=== PATIENT | male | born 1990 | race Caucasian/White ===

== ENCOUNTER 2017-01-19 08:41 | Emergency (ER) | payer OTHER ==
[2017-01-19] MEDS ORDERED: Ondansetron ODT TAB* 4 MG PO ONE (09:01)
[2017-01-19] MEDS ORDERED: Ketorolac INJ* 60 MG/2 ML VIAL IM ONE (09:01)
--- NOTE | 2017-01-19 09:11 | ED ---
Influenza-Like Illness - HPI Summary HPI Summary: Patient presents with cough, congestion, vomiting, myalgia, and subjective fever since yesterday. His son was diagnosed with flu and he feels he has it as well. He has been unable to keep food down but has been able to consume liquids. He denies neck stiffness, abdominal pain, TRACY, CP or SOB. - History of Current Complaint Chief Complaint: EDFluSymptoms Time Seen by Provider: 01/19/17 08:49 Hx Obtained From: Patient Onset/Duration: Gradual Onset Severity: Moderate Associated Signs & Symptoms: Myalgia, Cough, Sore Throat, Nasal Congestion, Vomiting Related Hx: Possible Flu/Infectious Exposure - Allergy/Home Medications Allergies/Adverse Reactions: Allergies Allergy/AdvReac Type Severity Reaction Status Date / Time No Known Allergies Allergy Verified 01/19/17 08:43 PMH/Surg Hx/FS Hx/Imm Hx Endocrine/Hematology History: Denies: Hx Diabetes, Hx Thyroid Disease Cardiovascular History: Denies: Hx Hypertension Respiratory History: Reports: Hx Asthma - as a child, but no tx now Denies: Hx Chronic Obstructive Pulmonary Disease (COPD) GI History: Denies: Hx Ulcer Psychiatric History: Reports: Hx Anxiety, Hx Depression, Hx Inpatient Treatment - history of overdose, Hx Substance Abuse - IV heroin Infectious Disease History: Yes Infectious Disease History: Reports: Hx of Known/Suspected MRSA Denies: Hx Hepatitis, Hx Human Immunodeficiency Virus (HIV), History Other Infectious Disease, Traveled Outside the [place] in Last 30 Days - Family History Known Family History: Positive: Cardiac Disease, Diabetes - Social History Occupation: Unemployed Lives: With Family Alcohol Use: Rare Alcohol Amount: once per year Substance Use Type: Reports: Heroin Substance Use Comment - Amount & Last Used: last use 01/2016 Hx Tobacco Use: Yes Smoking Status (MU): Heavy Every Day Tobacco Smoker Amount Used/How Often: 1 PPD Cessation Counseling: Patient Advised to Stop Review of Systems Positive: Chills, Fatigue. Negative: Fever Positive: Sore Throat Negative: Chest Pain Positive: Cough. Negative: Shortness Of Breath Positive: Vomiting, Nausea. Negative: Abdominal Pain, Diarrhea Positive: Myalgia. Negative: Edema Negative: Rash Positive: Anxious All Other Systems Reviewed And Are Negative: Yes Physical Exam Triage Information Reviewed: Yes Vital Signs On Initial Exam: Initial Vitals Temp Pulse Resp BP Pulse Ox 98.4 F 99 24 136/80 96 01/19/17 08:43 01/19/17 08:43 01/19/17 08:43 01/19/17 08:43 01/19/17 08:43 Vital Signs Reviewed: Yes Appearance: Positive: Well-Appearing, No Pain Distress, Well-Nourished Skin: Positive: Warm, Skin Color Reflects Adequate Perfusion, Dry, Soft Head/Face: Positive: Normal Head/Face Inspection Eyes: Positive: EOMI, ASIM, Conjunctiva Clear ENT: Positive: Hearing grossly normal, Pharyngeal erythema, TMs normal Neck: Positive: Supple, Nontender, No Lymphadenopathy Respiratory/Lung Sounds: Positive: Clear to Auscultation, Breath Sounds Present Cardiovascular: Positive: RRR Abdomen Description: Positive: Nontender, Soft Bowel Sounds: Positive: Present Musculoskeletal: Positive: Strength/ROM Intact. Negative: Edema Left, Edema Right Neurological: Positive: Sensory/Motor Intact, Alert, Oriented to Person Place, Time, NV Bundle Intact Distally, Normal Gait Psychiatric: Positive: Affect/Mood Appropriate AVPU Assessment: Alert Diagnostics - Vital Signs Vital Signs Temp Pulse Resp BP Pulse Ox 01/19/17 08:43 98.4 F 99 24 136/80 96 - Laboratory Lab Results: Positive influenza Lab Statement: Any lab studies that have been ordered have been reviewed, and results considered in the medical decision making process. Flu Symptom Course/Dx - Diagnoses Differential Diagnosis/HQI/PQRI: Positive: Bronchitis, Influenza, Pneumonia, Upper Respiratory Infection Provider Diagnoses: Influenza Discharge - Discharge Plan Condition: Stable Disposition: HOME Prescriptions: Ibuprofen TAB* [Motrin TAB* 800 MG] 800 mg PO TID PRN #30 tab PRN Reason: Pain Oseltamivir CAP* [Tamiflu CAP*] 75 mg PO BID #9 cap Prochlorperazine TAB* [Compazine Tab*] 10 mg PO Q8H PRN #15 tab PRN Reason: Nausea Patient Education Materials: Influenza (ED), Acute Nausea and Vomiting (ED) Referrals: [facility] [place] [facility]ICIAN REFERRAL [Outside] Additional Instructions: Please use the medication provided to decrease your symptoms. Drink extra fluids. Call the number provided to establish care with a primary care provider for follow-up care. Return to the emergency department if symptoms worsen.
[2017-01-19] MEDS ORDERED: Oseltamivir CAP* 75 MG PO ONE (10:19)
[2017-01-19] MEDS ORDERED: diPHENhydraMINE PO* 50 MG PO ONE (10:33)
[2017-01-19 10:55] VITALS: BP 115/76
== END 2017-01-19 10:42 | disposition home or self-care (01) ==
LOC: ED 08:41
DX: J11.1 Influenza due to unidentified influenza virus with other respiratory manifestations (principal); J02.9 Acute pharyngitis, unspecified; R09.81 Nasal congestion; R05 Cough; R11.10 Vomiting, unspecified; R11.2 Nausea with vomiting, unspecified; R53.83 Other fatigue; F17.210 Nicotine dependence, cigarettes, uncomplicated
CPT/HCPCS: 87502; 87651; 96372; 99283; A9270-GY; J1885

== ENCOUNTER 2017-01-20 16:45 | Emergency (ER) | payer OTHER ==
[2017-01-20] MEDS ORDERED: Ondansetron INJ* 2 MG/ML VIAL IV ONE (18:02)
[2017-01-20] MEDS ORDERED: NS 0.9% 1000 ML* 1,000 ML IV ONE (18:02)
[2017-01-20] MEDS ORDERED: LORazepam INJ* 2 MG/ML 1 ML VIAL IV ONE (18:35)
[2017-01-20 18:36] LABS: Hematocrit 55 % (42-52); Hemoglobin 18.4 g/dl (14.0-18.0); Mean Corpuscular HGB Conc 34 g/dl (31-36); Mean Corpuscular Hemoglobin 30 pg (27-31); Mean Corpuscular Volume 89 fL (80-94); Mean Platelet Volume 11 um3 (7.4-10.4); Red Blood Count 6.15 10^6/ul (4.0-5.4); Red Cell Distribution Width 13 % (10.5-15); White Blood Count 11.5 10^3/ul (3.5-10.8)
[2017-01-20 18:40] LABS: Add Diff/Slide Review? Slide Review Added; Comments Flag Yes
[2017-01-20 18:51] LABS: Albumin 4.8 g/dL (3.2-5.2); BUN/Creatinine Ratio 18.8 (8-20); C Reactive Protein 35.97 mg/L (< 5.00); Calcium 9.8 mg/dL (8.6-10.3); EGFR Non-African American 88.6 (>60); Globulin 3.2 g/dL (2-4); Potassium 3.4 mmol/L (3.5-5.0); Total Bilirubin 1.1 mg/dL (0.2-1.0)
[2017-01-20] MEDS ORDERED: Ketorolac INJ* 30 MG/ML 1 ML VIAL IV PUSH ONE (20:30)
[2017-01-20] MEDS ORDERED: Haloperidol INJ IV/IM* 5 MG/ML AMP IV SLOW PU ONE (20:36)
[2017-01-20] MEDS ORDERED: Dexamethasone IV* 4 MG/ML 1 ML (4 MG) IV SLOW PU ONE (20:37)
[2017-01-20 21:48] LABS: Hematocrit 49 % (42-52); Hemoglobin 16.7 g/dl (14.0-18.0); Mean Corpuscular HGB Conc 34 g/dl (31-36); Mean Corpuscular Hemoglobin 30 pg (27-31); Mean Corpuscular Volume 89 fL (80-94); Mean Platelet Volume 11 um3 (7.4-10.4); Red Blood Count 5.57 10^6/ul (4.0-5.4); Red Cell Distribution Width 13 % (10.5-15); White Blood Count 12.2 10^3/ul (3.5-10.8)
[2017-01-20 23:55] VITALS: BP 116/68
--- NOTE | 2017-01-21 14:00 | ED ---
Sanjiv Escalante Adam, scribed for Rachid Whitaker MD on 01/20/17 at 1730 . Influenza-Like Illness - HPI Summary HPI Summary: Pt is a 26 year old male presenting with persistence of flu symptoms, particularly vomiting. He was seen at [facility] yesterday and was diagnosed with positive Influenza B. Since then he states that he has been taking the medicine he was given but has continued vomiting. He c/o a FB sensation in his throat which has been activating his gag reflex. He also states that he urinated 1x today and it appeared red. - History of Current Complaint Chief Complaint: EDFluSymptoms Time Seen by Provider: 01/20/17 17:23 Hx Obtained From: Patient Onset/Duration: Gradual Onset, Lasting Days, Still Present Severity: Moderate Associated Signs & Symptoms: Fever, Vomiting - Allergy/Home Medications Allergies/Adverse Reactions: Allergies Allergy/AdvReac Type Severity Reaction Status Date / Time No Known Allergies Allergy Verified 01/19/17 08:43 PMH/Surg Hx/FS Hx/Imm Hx Endocrine/Hematology History: Denies: Hx Diabetes, Hx Thyroid Disease Cardiovascular History: Denies: Hx Hypertension Respiratory History: Reports: Hx Asthma - as a child, but no tx now Denies: Hx Chronic Obstructive Pulmonary Disease (COPD) GI History: Denies: Hx Ulcer Psychiatric History: Reports: Hx Anxiety, Hx Depression, Hx Inpatient Treatment - history of overdose, Hx Substance Abuse - IV heroin Infectious Disease History: Reports: Hx of Known/Suspected MRSA Denies: Hx Hepatitis, Hx Human Immunodeficiency Virus (HIV), History Other Infectious Disease, Traveled Outside the [place] in Last 30 Days - Family History Known Family History: Positive: Cardiac Disease, Diabetes - Social History Occupation: Unemployed Lives: With Family - Father Alcohol Use: Rare Alcohol Amount: once per year Hx Substance Use: Yes Substance Use Type: Reports: Heroin Substance Use Comment - Amount & Last Used: last use 01/2016 Hx Tobacco Use: Yes Smoking Status (MU): Heavy Every Day Tobacco Smoker Amount Used/How Often: 1 PPD Review of Systems Positive: Fever Positive: Vomiting, Nausea Positive: hematuria - Possibly All Other Systems Reviewed And Are Negative: Yes Physical Exam Triage Information Reviewed: Yes Vital Signs On Initial Exam: Initial Vitals Temp Pulse Resp BP Pulse Ox 100.3 F 85 20 138/78 98 01/20/17 16:53 01/20/17 16:53 01/20/17 16:53 01/20/17 16:53 01/20/17 16:53 Vital Signs Reviewed: Yes Appearance: Positive: Well-Appearing, No Pain Distress Skin: Positive: Warm, Skin Color Reflects Adequate Perfusion, Dry Head/Face: Positive: Normal Head/Face Inspection Eyes: Positive: Normal ENT: Positive: Normal ENT inspection, Other - mild erythema and swelling of his uvula Neck: Positive: Supple, Nontender Respiratory/Lung Sounds: Positive: Clear to Auscultation, Breath Sounds Present Cardiovascular: Positive: RRR Abdomen Description: Positive: Nontender, Soft Bowel Sounds: Positive: Present Musculoskeletal: Positive: Normal Neurological: Positive: Normal Psychiatric: Positive: Affect/Mood Appropriate - Katt Coma Scale Coma Scale Total: 15 Diagnostics - Vital Signs Vital Signs Temp Pulse Resp BP Pulse Ox 01/20/17 16:53 100.3 F 85 20 138/78 98 - Laboratory Result Diagrams: 01/20/17 21:40 01/20/17 18:15 Lab Statement: Any lab studies that have been ordered have been reviewed, and results considered in the medical decision making process. Flu Symptom Course/Dx - Course Course Of Treatment: Mr. Pro presented to the ED C/O severe N/V and sore throat. He was here yesterday and Dx'd with Influenza B. While here, he made repeated attempts to gag himself and retched a lot. He had no labs yesterday and I will check labs, rehydrate him and treat him symptomatically. He was given ativan which seems to have stopped the retching. - Diagnoses Provider Diagnoses: Influenza, Uvulitis - Physician Notifications Discussed Care Of Patient With: Dr. Bianchi at change of shift Discharge - Discharge Plan Condition: Stable Disposition: HOME Prescriptions: Metoclopramide TAB* [Reglan TAB*] 10 mg PO Q8H #9 tab Ondansetron ODT TAB* [Zofran 4 MG Odt TAB*] 4 mg PO Q8H PRN #9 tab.odt PRN Reason: Nausea/Vomiting Patient Education Materials: Influenza (ED), Acute Nausea and Vomiting (ED), Uvulitis (ED) Forms: *Work Release Referrals: [facility]ERR[facility] [Outside] Additional Instructions: Follow up with your Primary Care Physician this week. Use the [facility] Physician Referral Center if needed. The documentation as recorded by the Sanjiv franklin,Ciro accurately reflects the service I personally performed and the decisions made by me, Rachid Whitaker MD.
--- NOTE | 2017-01-22 21:30 | ED ---
Jonathan Escalante Billy, scribed for Nico Bianchi MD on 01/20/17 at 2036 . Progress - Progress Note Progress Note: Patient signed out by Dr. Whitaker at shift change. Re-Evaluation - Re-Evaluation First Eval Re-Evaluation Time: 20:37 Second Eval Re-Evaluation Time: 22:58 Change: Improved Course/Dx - Course Course Of Treatment: Patient signed out by Dr. Whitaker at shift change. He states that he has been vomiting blood, although there is no evidence of him doing so. On exam in the ED, patient has an enlarged uvula. He was observed in the ED and given Toradol, Haldol, and Decadron, and with re-evaluation, his symptoms improved. He will be discharged to follow up with PCP. - Diagnoses Provider Diagnoses: Influenza, Uvulitis Discharge - Discharge Plan Condition: Stable Disposition: HOME Patient Education Materials: Influenza (ED), Acute Nausea and Vomiting (ED), Uvulitis (ED) Referrals: [facility] [place] [Outside] Additional Instructions: Follow up with your Primary Care Physician this week. Use the [facility]erral [facility] if needed. The documentation as recorded by the Jonathan franklin Billy accurately reflects the service I personally performed and the decisions made by Tash castelan Jerry, MD.
== END 2017-01-20 23:55 | disposition home or self-care (01) ==
LOC: ED 16:45
DX: J11.1 Influenza due to unidentified influenza virus with other respiratory manifestations (principal); K12.2 Cellulitis and abscess of mouth; R11.10 Vomiting, unspecified; R50.9 Fever, unspecified
CPT/HCPCS: 36415; 80053; 85025; 85027; 86140; 96374; 96375; 99283; J1100; J1630; J1885; J2060; J2405

== ENCOUNTER 2017-01-23 00:03 | Emergency (ER) | payer OTHER ==
[2017-01-23 00:09] VITALS: BP 157/78
== END 2017-01-23 00:14 | disposition left against medical advice (07) ==
LOC: ED 00:03
DX: K92.0 Hematemesis (principal); Z53.21 Procedure and treatment not carried out due to patient leaving prior to being seen by health care provider

== ENCOUNTER → 2017-04-13 15:25 | Emergency (ER) | payer SELFPAY ==
[2017-04-13 15:37] VITALS: BP 128/78
== END | disposition left against medical advice (07) ==
LOC: ED 15:25
DX: H92.09 Otalgia, unspecified ear (principal)

== ENCOUNTER 2017-04-13 16:46 | Emergency (ER) | payer SELFPAY ==
[2017-04-13 17:05] VITALS: BP 138/91
[2017-04-13] MEDS ORDERED: HYDROmorphone* 2 MG/ML 1 ML SYR IV SLOW PU ONE (17:21)
[2017-04-13] MEDS ORDERED: Vancomycin(*) 1,000 MG in NS 0.9% 250 ML* 250 ML IVPB SCH (18:00)
[2017-04-13 18:11] LABS: Hematocrit 41 % (42-52); Hemoglobin 13.9 g/dl (14.0-18.0); Mean Corpuscular HGB Conc 34 g/dl (31-36); Mean Corpuscular Hemoglobin 30 pg (27-31); Mean Corpuscular Volume 90 fL (80-94); Mean Platelet Volume 10 um3 (7.4-10.4); Red Blood Count 4.57 10^6/ul (4.0-5.4); Red Cell Distribution Width 13 % (10.5-15); White Blood Count 11.4 10^3/ul (3.5-10.8)
[2017-04-13] MEDS ORDERED: Vancomycin per Pharmacy* NOTE FOLLOW UP PRN (18:25)
[2017-04-13 18:28] LABS: Albumin 4.5 g/dL (3.2-5.2); C Reactive Protein 30.36 mg/L (< 5.00); Calcium 9.8 mg/dL (8.6-10.3); EGFR African American 159.5 (>60); Globulin 2.8 g/dL (2-4); Potassium 3.3 mmol/L (3.5-5.0); Total Bilirubin 2.2 mg/dL (0.2-1.0); Total Protein 7.3 g/dL (6.4-8.9)
[2017-04-13] MEDS ORDERED: Iohexol 300* (CONTRAST) 10 ML SDV IV ONE (18:34)
--- NOTE | 2017-04-13 18:49 | RAD ---
INDICATION: Cough and fever COMPARISON: July 30, 2016 TECHNIQUE: An AP portable view obtained at 1825 hours is submitted. FINDINGS: Bones/Soft Tissues: There are no acute bony findings. Cardiomediastinal: The cardiomediastinal silhouette is normal. Lungs: There are no infiltrates. Pleura: There are no pleural effusions. Other: None IMPRESSION: NO ACTIVE DISEASE.
[2017-04-13] MEDS ORDERED: VANCOMYCIN 1500 MG X 1 DOSE, THEN PER PHARMACY PROTOCOL IVPB ONE ×2 (19:00)
--- NOTE | 2017-04-13 19:01 | RAD ---
INDICATION: Left ear skin lesion. Purulent drainage. COMPARISON: None TECHNIQUE: Axial source images were acquired from the vertex of the mandible through the orbits. Coronal and sagittal reconstructed images were acquired. 75 mL of Omnipaque 300 was utilized. FINDINGS: Bones: There is no acute facial bone fracture. Orbits: The globes and intraconal structures appear intact. The optic nerves are symmetric. Extraocular muscles appear normal. There is no intraconal inflammatory change or retrobulbar mass.. Paranasal sinuses: There is bilateral ethmoid sinusitis. There is circumferential mucosal thickening in the left maxillary antrum. There is minor left ethmoid and sphenoid sinus mucoperiosteal thickening. Brain: There are no acute abnormalities of the visualized brain parenchyma. Soft tissues: There is a fascial/subcutaneous edema about the soft tissues of the external ear centered at the level of the tragus. The edema results in narrowing of the external auditory canal. There is preauricular soft tissue swelling/edema. There is no localized fluid collection or foreign body. Other: The mastoid air cells are well aerated. There is no evidence of mastoiditis Nodes There is submental lymph node enlargement which may be reactive. The largest lymph node measures 1.2 cm in transverse dimension. There are also small but asymmetric left-sided preauricular lymph nodes. IMPRESSION: 1. SOFT TISSUE SWELLING ABOUT THE TRAGUS/EXTERNAL AUDITORY CANAL AND PREAURICULAR SPACE. 2. NO LOCALIZED FLUID COLLECTION TO SUGGEST ORGANIZED ABSCESS. 3. FINDINGS COMPATIBLE WITH CHRONIC SINUSITIS. 4. NO OSSEOUS CHANGE OR EVIDENCE OF MASTOIDITIS. 5. ENLARGED SUBMENTAL AND ASYMMETRIC PREAURICULAR LYMPH NODES ARE LIKELY REACTIVE.
[2017-04-13 19:38] LABS: Erythrocyte Sed Rate 13 mm/Hr (0-14)
--- NOTE | 2017-04-20 23:26 | ED ---
Sylvia Escalante Auryana, scribed for Nico Bianchi MD on 04/13/17 at 1711 . Throat Pain/Nasal Congestion - HPI Summary HPI Summary: 27 year old male presents with left side ear pain starting last night. He reports that he opened the pimple with his knife - states "uses his knife for everything". On a scale of 1-10, patient reports that his pain is a "20/10". Patient reports that the pain radiates to the areas around it, to the jaw - reports hard to open without physical help. He denies any fevers. PMHx is significant for drug abuse - Suboxone - reports last dose yesterday morning. - History of Current Complaint Chief Complaint: EDRashSkinAbscess Time Seen by Provider: 04/13/17 16:58 Hx Obtained From: Patient Onset/Duration: Sudden Onset, Lasting Days - last night, Still Present Severity: Severe - PER PATIENT "20/10" Cough: None - Allergies/Home Medications Allergies/Adverse Reactions: Allergies Allergy/AdvReac Type Severity Reaction Status Date / Time No Known Allergies Allergy Verified 04/13/17 15:38 PMH/Surg Hx/FS Hx/Imm Hx Endocrine/Hematology History: Denies: Hx Diabetes, Hx Thyroid Disease Cardiovascular History: Denies: Hx Hypertension Respiratory History: Reports: Hx Asthma - as a child, but no tx now Denies: Hx Chronic Obstructive Pulmonary Disease (COPD) GI History: Denies: Hx Ulcer Psychiatric History: Reports: Hx Anxiety, Hx Depression, Hx Inpatient Treatment - history of overdose, Hx Substance Abuse - IV heroin Infectious Disease History: Reports: Hx of Known/Suspected MRSA Denies: Hx Hepatitis, Hx Human Immunodeficiency Virus (HIV), History Other Infectious Disease, Traveled Outside the [place] in Last 30 Days - Family History Known Family History: Positive: Cardiac Disease, Diabetes - Social History Lives: With Family Alcohol Use: Rare Alcohol Amount: once per year Hx Substance Use: Yes Substance Use Type: Reports: Heroin, Other - states suboxone - "off the streets " Substance Use Comment - Amount & Last Used: last use 01/2016 Hx Tobacco Use: Yes Smoking Status (MU): Heavy Every Day Tobacco Smoker Amount Used/How Often: 1 PPD Review of Systems Constitutional: Negative Negative: Fever Eyes: Negative Positive: Ear Ache Cardiovascular: Negative Negative: Chest Pain Respiratory: Negative Negative: Shortness Of Breath, Cough Gastrointestinal: Negative Negative: Abdominal Pain, Vomiting, Nausea Genitourinary: Negative Negative: dysuria, hematuria Musculoskeletal: Negative Negative: Myalgia, Edema Skin: Negative Negative: Rash Neurological: Negative, Other - no dizziness Psychological: Normal All Other Systems Reviewed And Are Negative: Yes Physical Exam - Summary Physical Exam Summary: Constitutional: Well-developed, Well-nourished, Alert. (-) Distressed Skin: Warm, Dry HENT: Normocephalic; Atraumatic Eyes: tragus is indurated and erythematus - mild trismus with yellow pus draining out of the external ear and into the ear canal Eyes: Conjunctiva normal Neck: Musculoskeletal ROM normal neck. (-) JVD, (-) Stridor, (-) Tracheal deviation Cardio: Rhythm regular, rate normal, Heart sounds normal; Intact distal pulses; The pedal pulses are 2+ and symmetric. Radial pulses are 2+ and symmetric. (-) Murmur Pulmonary/Chest wall: Effort normal. (-) Respiratory distress, (-) Wheezes, (-) Rales Abd: Soft, (-) Tenderness, (-) Distension, (-) Guarding, (-) Rebound Musculoskeletal: (-) Edema Lymph: (-) Cervical adenopathy Neuro: Alert, Oriented x3 Psych: Mood and affect Normal Triage Information Reviewed: Yes Vital Signs Reviewed: Yes Diagnostics - Laboratory Result Diagrams: 04/13/17 17:55 04/13/17 17:55 Lab Statement: Any lab studies that have been ordered have been reviewed, and results considered in the medical decision making process. - Radiology Chest XR Xray Interpretation: No Acute Changes - IMPRESSION: NO ACTIVE DISEASE. Radiology Interpretation Completed By: Radiologist - IMPRESSION: NO ACTIVE DISEASE. EENT Course/Dx - Course Course Of Treatment: 27 year old male presents with left side ear pain starting last night. He reports that he opened the pimple with his knife - states "uses his knife for everything". On a scale of 1-10, patient reports that his pain is a "20/10". Patient reports that the pain radiates to the areas around it, to the jaw - reports hard to open without physical help. He denies any fevers. PMHx is significant for drug abuse - Suboxone - reports last dose yesterday morning. Dr. Avalos consulted - oral ABX will be given Cipro 750mg BID, and reocmmended if worse tomorrow f/u at his office or be seen in the ED - OTHERWISE follow up in 3-5 days at the office. No indication fo surgery or admission. CT maxillofacial -IMPRESSION: 1. SOFT TISSUE SWELLING ABOUT THE TRAGUS/EXTERNAL AUDITORY CANAL AND PREAURICULAR SPACE. 2. NO LOCALIZED FLUID COLLECTION TO SUGGEST ORGANIZED ABSCESS. 3. FINDINGS COMPATIBLE WITH CHRONIC SINUSITIS. 4. NO OSSEOUS CHANGE OR EVIDENCE OF MASTOIDITIS. 5. ENLARGED SUBMENTAL AND ASYMMETRIC PREAURICULAR LYMPH NODES ARE LIKELY REACTIVE. Dx: IVDA , and ear abscess. PATIENT REPORTS THAT HE DOES NOT WANT TO STAY AND WAIT UNTIL ABX ARE DONE AND TRANSMITTED. PATIENT STATES THAT HE HAS OTHER COMMITMENTS. PATIENT WILL LEAVE AMA. - Diagnoses Provider Diagnoses: Intravenous drug abuse, Abscess, ear canal - Provider Notifications Discussed Care Of Patient With: Franco Avalos Time Discussed With Above Provider: 17:41 - Advised to call after imaging is finished states will likely recommend oral ABX. Discharge - Discharge Plan Condition: Stable Disposition: AGAINST MEDICAL ADVICE Prescriptions: Ciprofloxacin TAB* [Cipro 750 MG Tab*] 750 mg PO BID #28 tab oxyCODONE/Acetamin 5/325 MG* [Percocet 5/325 TAB*] 2 tab PO Q4H PRN #20 tab MDD 8 PRN Reason: Pain - Moderate To Severe Patient Education Materials: Abscess (ED), Polysubstance Abuse (ED) Referrals: Franco Avalos MD [Medical Doctor] - (please follow up in 3-5 days. IF PAIN WOR WORSENING SYMPTOMS PLEASE CALL OFFICE IMMEDIATELY FOR FOLLOW UP OR RETURN TO THE ED.) Additional Instructions: RETURN TO THE EMERGENCY DEPARTMENT FOR CHANGING OR WORSENING SYMPTOMS The documentation as recorded by the Sylvia franklin Auryana accurately reflects the service I personally performed and the decisions made by , Nico Bianchi MD.
== END 2017-04-13 19:30 | disposition left against medical advice (07) ==
LOC: ED 16:46
DX: H66.40 Suppurative otitis media, unspecified, unspecified ear (principal); F19.10 Other psychoactive substance abuse, uncomplicated; H92.02 Otalgia, left ear; F17.210 Nicotine dependence, cigarettes, uncomplicated
CPT/HCPCS: 36415; 70487; 71010; 80053; 83605; 85025; 85610; 85652; 85730; 86140; 87040; 87070; 87077; 87186; 87205; 87640; 87641; 96374; 99283; J1170; J2543; J3370; Q9967

== ENCOUNTER 2017-04-13 23:40 | Emergency (ER) | payer SELFPAY ==
[2017-04-13 23:47] VITALS: BP 140/67
--- NOTE | 2017-04-15 11:22 | PN ---
Progress Note - Progress Note Date of Service: 04/15/17 Note: wound culture grew MRSA. attempted to call patient and VM not set up. sent script Bactrim DS bid X10 days so will have send letter
--- NOTE | 2017-04-16 10:46 | PN ---
Progress Note - Progress Note Date of Service: 04/13/17 Note: Sensitivities to bactrim Cx grew MRSA Appropriately treated with bactrim Nothing further at this time. Alexandra Fonseca PA-C
--- NOTE | 2017-04-25 04:39 | ED ---
Tl Escalante SooYoung, scribed for Dustin Denny MD on 04/14/17 at 0247 . Throat Pain/Nasal Congestion - HPI Summary HPI Summary: LEVEL 5 CAVEAT: HPI LIMITED, PT LEFT AMA PRIOR TO EVALUATION. A 27 y/o M presents to ED with ear pain. Pt had been seen in ED twice previously on 04/13/2017. Pt was roused from sleep at bedside. When asked why he returned to ED, pt became agitated and left AMA. - History of Current Complaint Chief Complaint: EDEarPain Time Seen by Provider: 04/14/17 02:45 - Allergies/Home Medications Allergies/Adverse Reactions: Allergies Allergy/AdvReac Type Severity Reaction Status Date / Time No Known Allergies Allergy Verified 04/13/17 15:38 PMH/Surg Hx/FS Hx/Imm Hx Previously Healthy: No Endocrine/Hematology History: Denies: Hx Diabetes, Hx Thyroid Disease Cardiovascular History: Denies: Hx Hypertension Respiratory History: Reports: Hx Asthma - as a child, but no tx now Denies: Hx Chronic Obstructive Pulmonary Disease (COPD) GI History: Denies: Hx Ulcer Psychiatric History: Reports: Hx Anxiety, Hx Depression, Hx Inpatient Treatment - history of overdose, Hx Substance Abuse - IV heroin Infectious Disease History: No Infectious Disease History: Reports: Hx of Known/Suspected MRSA Denies: Hx Hepatitis, Hx Human Immunodeficiency Virus (HIV), History Other Infectious Disease, Traveled Outside the [place] in Last 30 Days - Family History Known Family History: Positive: Cardiac Disease, Diabetes - Social History Occupation: Unemployed Lives: Alone Alcohol Use: Occasionally Alcohol Amount: once per year Hx Substance Use: Yes Substance Use Type: Reports: Heroin Substance Use Comment - Amount & Last Used: last use 01/2016, pt states current IV suboxone use Hx Tobacco Use: Yes Smoking Status (MU): Heavy Every Day Tobacco Smoker Amount Used/How Often: 1 PPD Review of Systems - ROS Summary Review of Systems Summary: LEVEL 5 CAVEAT: ROS LIMITED DUE TO PT LEAVING AMA PRIOR TO EVALUATION. Negative: Fever Positive: Ear Ache All Other Systems Reviewed And Are Negative: No Physical Exam Vital Signs On Initial Exam: Initial Vitals Temp Pulse Resp BP Pulse Ox 99.2 F 90 22 140/67 100 04/13/17 23:41 04/13/17 23:41 04/13/17 23:41 04/13/17 23:41 04/13/17 23:41 Diagnostics - Vital Signs Vital Signs Temp Pulse Resp BP Pulse Ox 04/14/17 00:21 97.1 F 101 18 140/67 100 04/13/17 23:41 99.2 F 90 22 140/67 100 - Laboratory Lab Statement: Any lab studies that have been ordered have been reviewed, and results considered in the medical decision making process. EENT Course/Dx - Diagnoses Provider Diagnoses: Ear pain Discharge - Discharge Plan Condition: Stable Disposition: AGAINST MEDICAL ADVICE Prescriptions: Ciprofloxacin TAB* [Cipro 750 MG Tab*] 750 mg PO BID #28 tab Sulfamethox/Trimethoprim DS* [Bactrim DS 800/160 TAB*] 1 tab PO BID #20 tab Referrals: No Primary Care Phys,NOPCP [Primary Care Provider] - The documentation as recorded by the Tl franklin SooYoung accurately reflects the service I personally performed and the decisions made by me, Dustin Denny MD.
== END 2017-04-14 02:53 | disposition left against medical advice (07) ==
LOC: ED 23:40
DX: H92.09 Otalgia, unspecified ear (principal); J45.909 Unspecified asthma, uncomplicated; F41.9 Anxiety disorder, unspecified; F32.9 Major depressive disorder, single episode, unspecified; F17.210 Nicotine dependence, cigarettes, uncomplicated
CPT/HCPCS: 99282

== ENCOUNTER → 2017-09-09 01:41 | Emergency (ER) | payer OTHER ==
[~2017-09-09 01:41] MED LIST: Tetan/Diph/Pertus SYR(Tdap)* 0.5 ML SYR(BOOSTRIX) use SYR IM ONE
[2017-09-09 01:47] VITALS: BP 137/90
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
== END | disposition home or self-care (01) ==
LOC: ED 01:41
DX: S09.90XA Unspecified injury of head, initial encounter (principal); S01.411A Laceration without foreign body of right cheek and temporomandibular area, initial encounter; S02.2XXA Fracture of nasal bones, initial encounter for closed fracture; W50.0XXA Accidental hit or strike by another person, initial encounter; Y93.9 Activity, unspecified; Y92.9 Unspecified place or not applicable; Z23 Encounter for immunization; R11.0 Nausea; F41.9 Anxiety disorder, unspecified; F32.9 Major depressive disorder, single episode, unspecified; F17.210 Nicotine dependence, cigarettes, uncomplicated
CPT/HCPCS: 12011; 70450; 70486; 72125; 90471; 90715; 99282

== ENCOUNTER 2019-12-03 08:06 | Emergency (ER) | payer SELFPAY ==
[2019-12-03 08:32] LABS: Influenza A Molecular Negative (Negative); Influenza B Molecular Negative (Negative)
--- NOTE | 2019-12-03 08:42 | UC ---
Abdominal Pain Male HPI - HPI Summary HPI Summary: Patient is a 29-year-old male that presents here complaining of muscle aches, crampy abdominal pain, nausea, and vomiting. His vomiting has been very frequent. He states that he uses K /2, spice and feels that he is addicted to it. He has had no surgeries on his abdomen. He denies any fever. He denies any UTI symptoms. He denies any alcohol use. - History of Current Complaint Chief Complaint: UCRespiratory Stated Complaint: FLU SYMPTOMS Time Seen by Provider: 12/03/19 08:09 Hx Obtained From: Patient Onset/Duration: Sudden Onset, Lasting Hours Timing: Constant Severity Initially: Moderate Severity Currently: Severe Pain Intensity: 9 Pain Scale Used: 0-10 Numeric Location: Diffuse Character: Cramping Aggravating Factor(s): Nothing Alleviating Factor(s): Nothing Associated Signs And Symptoms: Positive: Diaphoresis, Nausea, Vomiting Male Torso: 1 - band like pain across abd - Allergies/Home Medications Allergies/Adverse Reactions: Allergies Allergy/AdvReac Type Severity Reaction Status Date / Time No Known Allergies Allergy Verified 12/03/19 08:25 Home Medications: Home Medications Ibuprofen TAB* [Motrin TAB* 800 MG] 800 mg PO TID PRN #30 tab 01/19/17 [Rx Confirmed 12/03/19] Buprenorphine HCl/Naloxone HCl [Suboxone 12 mg-3 mg Sl Film] 1 each SL DAILY [History Confirmed 12/03/19] Gabapentin CAP(*) [Neurontin 400 mg CAP(*)] 1,600 mg PO DAILY 12/03/19 [History Confirmed 12/03/19] PMH/Surg Hx/FS Hx/Imm Hx Previously Healthy: Yes GI/ History: Other Other GI/ History: ? hx colitis - Surgical History Surgical History: None - Family History Known Family History: Positive: Cardiac Disease, Diabetes, Non-Contributory Family History: NON CONTRIBUTORY - Social History Alcohol Use: Rare Alcohol Amount: once per year Substance Use Type: Marijuana, Synthetic Drugs Substance Use Comment - Amount & Last Used: K2, suboxone Smoking Status (MU): Heavy Every Day Tobacco Smoker Amount Used/How Often: 1 PPD Household Exposure Type: Cigarettes - Immunization History Most Recent Influenza Vaccination: 2010 Most Recent Tetanus Shot: uknown Review of Systems All Other Systems Reviewed And Are Negative: Yes Constitutional: Positive: Fatigue Skin: Positive: Negative Eyes: Positive: Negative ENT: Positive: Negative Respiratory: Positive: Negative Cardiovascular: Positive: Negative Gastrointestinal: Positive: Abdominal Pain, Vomiting, Nausea Genitourinary: Positive: Negative Motor: Positive: Negative Neurovascular: Positive: Negative Musculoskeletal: Positive: Myalgia Neurological/Mental Status: Positive: Negative Psychological: Positive: Negative Physical Exam Vital Signs: Initial Vital Signs Temp 98.2 F 12/03/19 08:15 Pulse 83 12/03/19 08:15 Resp 16 12/03/19 08:15 BP 165/89 12/03/19 08:15 Pulse Ox 100 12/03/19 08:15 Re-Evaluation - Re-Evaluation First Eval Re-Evaluation Time: 10:11 Change: Improved - decreased nausea/still with abd pain but it is decreased Second Eval Re-Evaluation Time: 11:20 Change: Worse - feels worse after getting up and going to the rest room Abd Pain Male Course/Dx - Course Course Of Treatment: discussed with Veronica at [facility] [place] via [place] - Differential Dx/Clinical Impression Provider Diagnosis: Abdominal pain, Vomiting Discharge ED - Sign-Out/Discharge Documenting (check all that apply): Patient Departure All imaging exams completed and their final reports reviewed: No Studies - Discharge Plan Condition: Stable Disposition: TRANS HIGHER LVL OF CARE FAC Referrals: No Primary Care Phys,NOPCP [Primary Care Provider] - - Billing Disposition and Condition Condition: STABLE Disposition: Trans Higher Lvl of Care Fac
[2019-12-03] MEDS ORDERED: Ondansetron INJ* 2 MG/ML VIAL IV ONE (08:46)
[2019-12-03] MEDS ORDERED: Famotidine IV* 10 MG/ML 2 ML (20 mg) IV SLOW PU ONE (08:47)
[2019-12-03] MEDS ORDERED: NS 0.9% 1000 ML** 1,000 ML BOLUS ONE ×2 (08:47→10:18)
[2019-12-03] MEDS ORDERED: Lorazepam PYXIS KEY PRN (09:30)
[2019-12-03] MEDS ORDERED: LORazepam INJ* 2 MG/ML 1 ML VIAL IV PUSH ONE (09:30)
[2019-12-03] MEDS ORDERED: Ketorolac INJ* 30 MG/ML 1 ML VIAL IV ONE (09:32)
[2019-12-03] MEDS ORDERED: Lorazepam PYXIS KEY ONE (09:35)
[2019-12-03 11:34] VITALS: BP 146/72
== END 2019-12-03 11:38 | disposition short-term general hospital (02) ==
LOC: UCEAST 08:06
DX: R11.2 Nausea with vomiting, unspecified (principal); R10.9 Unspecified abdominal pain; R53.83 Other fatigue; R61 Generalized hyperhidrosis; M79.10 Myalgia, unspecified site; F17.210 Nicotine dependence, cigarettes, uncomplicated
CPT/HCPCS: 81003; 96360; 96361; 96374; 96376; 99213; G0463; J1885; J2060; J2405

== ENCOUNTER 2019-12-03 11:58 | Emergency (ER) | payer OTHER ==
[2019-12-03] MEDS ORDERED: Dicyclomine CAP* 10 MG PO ONE (13:04)
[2019-12-03 13:58] LABS: Urine Appearance Clear; Urine Bilirubin Negative (Negative); Urine Blood Negative (Negative); Urine Color Straw; Urine Glucose 1+(50 mg/dL) (Negative); Urine Ketones Negative (Negative); Urine Nitrite Negative (Negative); Urine Protein Negative (Negative); Urine Specific Gravity 1.011 (1.010-1.030); Urine Urobilinogen Negative (Negative)
[2019-12-03 14:03] LABS: Urine Benzodiazepine Screen None Detected (None Detect); Urine Opiates Screen None Detected (None Detect)
[2019-12-03 14:33] LABS: ABS Lymphocytes 1.1 10^3/ul (1.0-4.8); ABS Monocytes 0.3 10^3/ul (0-0.8); ABS Neutrophils 14.8 10^3/ul (1.5-7.7); Hematocrit 45 % (42-52); Hemoglobin 15.3 g/dL (14.0-18.0); Lymphocyte % 6.7 %; Mean Corpuscular HGB Conc 34 g/dL (31-36); Mean Corpuscular Hemoglobin 31 pg (27-31); Mean Corpuscular Volume 92 fL (80-94); Mean Platelet Volume 8.9 fL (7.4-10.4); Platelet Count 253 10^3/uL (150-450); Red Blood Count 4.92 10^6 /uL (4.18-5.48); Red Cell Distribution Width 13 % (10-15); White Blood Count 16.3 10^3/uL (3.5-10.8)
[2019-12-03 14:53] LABS: Albumin 4.7 g/dL (3.2-5.2); Albumin/Globulin Ratio 1.7 (1-3); BUN/Creatinine Ratio 14.7 (8-20); C Reactive Protein 21.84 mg/L (<8.01); Calcium 9.1 mg/dL (8.6-10.3); EGFR African American 165.7 (>60); EGFR Non-African American 136.9 (>60); Globulin 2.7 g/dL (2-4); Total Bilirubin 0.5 mg/dL (0.2-1.0); Total Protein 7.4 g/dL (6.4-8.9)
[2019-12-03] MEDS ORDERED: Iohexol 300* (CONTRAST) 10 ML SDV IV ONE (14:58)
[2019-12-03 15:29] VITALS: BP 167/90
[2019-12-03] MEDS ORDERED: NS 0.9% 1000 ML** 1,000 ML IV ONE (15:30)
[2019-12-03] MEDS ORDERED: Ondansetron INJ* 2 MG/ML VIAL IV ONE (16:11)
[2019-12-03] MEDS ORDERED: Al Hydrox/Mg Hydrox/Simet LIQ* 30 ML UDC PO ONE (16:22)
--- NOTE | 2019-12-03 16:23 | ED ---
Abdominal Pain/Male - HPI Summary HPI Summary: Patient is a 29-year-old male with history of IV drug use currently on Suboxone presenting to the ED with abdominal pain, nausea and vomiting. He was seen in urgent care and transferred here. States he has had one episode history of colitis which was diagnosed in [facility] last year. He was given antiemetics and another medication, patient does not recall, and symptoms improved. He was not given antibiotics at the time. He denies any fevers, sweats, chills. He denies any diarrhea and denies any melena, hematochezia, hematemesis, gross hematuria or other urinary symptoms. He takes Suboxone daily and has not his medications. Symptoms began yesterday, patient states he feels dehydrated. Symptoms are intermittent. Pain is located directly over the mid abdomen and is nonradiating. - History of Current Complaint Chief Complaint: EDAbdPain Stated Complaint: ABD PAIN PER EMS Time Seen by Provider: 12/03/19 12:02 Hx Obtained From: Patient Onset/Duration: Sudden Onset Timing: Constant Severity Initially: Moderate Severity Currently: Moderate Pain Intensity: 6 Pain Scale Used: 0-10 Numeric Location: Diffuse Radiates: No Character: Cramping Aggravating Factor(s): Nothing Alleviating Factor(s): Nothing Associated Signs And Symptoms: Positive: Constipation - Risk Factors Testicular Torsion: Negative Cardiac Risk Factors: Negative - Allergies/Home Medications Allergies/Adverse Reactions: Allergies Allergy/AdvReac Type Severity Reaction Status Date / Time No Known Allergies Allergy Verified 12/03/19 08:25 Home Medications: Home Medications Ibuprofen TAB* [Motrin TAB* 800 MG] 800 mg PO TID PRN #30 tab 01/19/17 [Rx Confirmed 12/03/19] Al Hydrox/Mg Hydrox/Simet LIQ* [Maalox Plus*] 30 ml PO Q4H PRN #1 bottle [Rx] Buprenorphine HCl/Naloxone HCl [Suboxone 12 mg-3 mg Sl Film] 1 each SL DAILY [History Confirmed 12/03/19] Gabapentin CAP(*) [Neurontin 400 mg CAP(*)] 800 - 1,200 mg PO DAILY 12/03/19 [ History Confirmed 12/03/19] Ondansetron ODT TAB* [Zofran 4 MG Odt TAB*] 4 mg PO Q6H PRN #12 tab.odt MDD 4 [Rx] Simethicone [Gas-X] 125 mg PO TID #15 capsule 12/03/19 [Rx] PMH/Surg Hx/FS Hx/Imm Hx Previously Healthy: Yes Endocrine/Hematology History: Denies: Hx Diabetes, Hx Thyroid Disease Cardiovascular History: Denies: Hx Hypertension Respiratory History: Reports: Hx Asthma Denies: Hx Chronic Obstructive Pulmonary Disease (COPD) GI History: Denies: Hx Ulcer Psychiatric History: Reports: Hx Anxiety, Hx Depression, Hx Inpatient Treatment - history of overdose, Hx Substance Abuse - IV heroin - Immunization History Hx Pertussis Vaccination: No Immunizations Up to Date: Yes Infectious Disease History: No Infectious Disease History: Reports: Hx of Known/Suspected MRSA Denies: Hx Hepatitis, Hx Human Immunodeficiency Virus (HIV), History Other Infectious Disease, Traveled Outside the [place] in Last 30 Days - Family History Known Family History: Positive: Cardiac Disease, Diabetes, Non-Contributory Family History: NON CONTRIBUTORY - Social History Occupation: Unemployed Lives: Alone Alcohol Use: Rare Alcohol Amount: once per year Hx Substance Use: Yes Substance Use Type: Reports: Marijuana, Synthetic Drugs Substance Use Comment - Amount & Last Used: K2 spice Hx Tobacco Use: Yes Smoking Status (MU): Heavy Every Day Tobacco Smoker Amount Used/How Often: 1 PPD Review of Systems Negative: Fever, Chills, Fatigue, Skin Diaphoresis Negative: Palpitations, Chest Pain Negative: Shortness Of Breath, Cough Positive: Abdominal Pain, Vomiting, Nausea. Negative: Diarrhea Genitourinary: Negative Positive: no symptoms reported, see HPI Negative: Arthralgia, Myalgia Skin: Negative All Other Systems Reviewed And Are Negative: Yes Physical Exam Triage Information Reviewed: Yes Vital Signs On Initial Exam: Initial Vitals Pulse Pulse Ox 80 97 12/03/19 12:04 12/03/19 12:04 Completion Of Physical Exam Limited Due To: Altered Mental Status - pt slow to respond Appearance: Positive: Well-Nourished, Ill-Appearing, Pain Distress Skin: Positive: Warm, Skin Color Reflects Adequate Perfusion Head/Face: Positive: Normal Head/Face Inspection Eyes: Positive: EOMI, ASIM, Conjunctiva Clear Neck: Positive: Supple, No Lymphadenopathy Respiratory/Lung Sounds: Positive: Clear to Auscultation, Breath Sounds Present Cardiovascular: Positive: RRR, Pulses are Symmetrical in both Upper and Lower Extremities Abdomen Description: Positive: Other: - tenderness throughout the abd Musculoskeletal: Positive: Normal, Strength/ROM Intact Neurological: Positive: Speech Normal AVPU Assessment: Verbal (Reponds To) - Katt Coma Scale Best Eye Response: 3 - To Speech Best Motor Response: 6 - Obeys Commands Best Verbal Response: 5 - Oriented Coma Scale Total: 14 Procedures - Sedation Patient Received Moderate/Deep Sedation with Procedure: No Diagnostics - Vital Signs Vital Signs Temp Pulse Resp BP Pulse Ox 12/03/19 15:25 72 167/90 96 12/03/19 15:24 72 96 12/03/19 14:35 145/88 12/03/19 14:06 161/89 12/03/19 13:36 134/73 12/03/19 13:17 67 100 12/03/19 13:05 148/94 12/03/19 12:35 146/82 12/03/19 12:05 98.3 F 61 20 168/103 99 12/03/19 12:04 80 97 - Laboratory Lab Results: Lab Results 12/03/19 12/03/19 12/03/19 Range/Units 13:33 13:33 14:15 WBC 16.3 H (3.5-10.8) 10^3/uL RBC 4.92 (4.18-5.48) 10^6 /uL Hgb 15.3 (14.0-18.0) g/dL Hct 45 (42-52) % MCV 92 (80-94) fL MCH 31 (27-31) pg MCHC 34 (31-36) g/dL RDW 13 (10-15) % Plt Count 253 (150-450) 10^3/uL MPV 8.9 (7.4-10.4) fL Neut % (Auto) 90.9 % Lymph % (Auto) 6.7 % [place] % (Auto) 2.1 % Eos % (Auto) 0.0 % Baso % (Auto) 0.3 % Absolute Neuts (auto) 14.8 H (1.5-7.7) 10^3/ul Absolute Lymphs (auto) 1.1 (1.0-4.8) 10^3/ul Absolute Monos (auto) 0.3 (0-0.8) 10^3/ul Absolute Eos (auto) 0.0 (0-0.6) 10^3/ul Absolute Basos (auto) 0.0 (0-0.2) 10^3/ul Absolute Nucleated RBC 0.0 10^3/ul Nucleated RBC % 0.0 Sodium (135-145) mmol/L Potassium (3.5-5.0) mmol/L Chloride (101-111) mmol/L Carbon Dioxide (22-32) mmol/L Anion Gap (2-11) mmol/L BUN (6-24) mg/dL Creatinine (0.67-1.17) mg/dL Est GFR ( Amer) (>60) Est GFR (Non-Af Amer) (>60) BUN/Creatinine Ratio (8-20) Glucose (70-100) mg/dL Lactic Acid (0.5-2.0) mmol/L Calcium (8.6-10.3) mg/dL Magnesium (1.9-2.7) mg/dL Total Bilirubin (0.2-1.0) mg/dL AST (13-39) U/L ALT (7-52) U/L Alkaline Phosphatase (34-104) U/L C-Reactive Protein (<8.01) mg/L Total Protein (6.4-8.9) g/dL Albumin (3.2-5.2) g/dL Globulin (2-4) g/dL Albumin/Globulin Ratio (1-3) Lipase (11.0-82.0) U/L Urine Color Straw Urine Appearance Clear Urine pH 8.0 (5-9) Ur Specific [place] 1.011 (1.010-1.030) Urine Protein Negative (Negative) Urine Ketones Negative (Negative) Urine Blood Negative (Negative) Urine Nitrate Negative (Negative) Urine Bilirubin Negative (Negative) Urine Urobilinogen Negative (Negative) Ur Leukocyte Esterase Negative (Negative) Urine Glucose 1+(50 mg/dl) A (Negative) Urine Opiates Screen None detected (None Detect) Ur Barbiturates Screen None detected (None Detect) Ur Phencyclidine Scrn None detected (None Detect) Ur Amphetamines Screen None detected (None Detect) U Benzodiazepines Scrn None detected (None Detect) Urine Cocaine Screen Presumptive positive A (None Detect) U Cannabinoids Screen None detected (None Detect) 02/21/20 02/21/20 Range/Units 14:15 14:15 WBC (3.5-10.8) 10^3/uL RBC (4.18-5.48) 10^6 /uL Hgb (14.0-18.0) g/dL Hct (42-52) % MCV (80-94) fL MCH (27-31) pg MCHC (31-36) g/dL RDW (10-15) % Plt Count (150-450) 10^3/uL MPV (7.4-10.4) fL Neut % (Auto) % Lymph % (Auto) % [place] % (Auto) % Eos % (Auto) % Baso % (Auto) % Absolute Neuts (auto) (1.5-7.7) 10^3/ul Absolute Lymphs (auto) (1.0-4.8) 10^3/ul Absolute Monos (auto) (0-0.8) 10^3/ul Absolute Eos (auto) (0-0.6) 10^3/ul Absolute Basos (auto) (0-0.2) 10^3/ul Absolute Nucleated RBC 10^3/ul Nucleated RBC % Sodium 135 (135-145) mmol/L Potassium 4.0 (3.5-5.0) mmol/L Chloride 101 (101-111) mmol/L Carbon Dioxide 26 (22-32) mmol/L Anion Gap 8 (2-11) mmol/L BUN 10 (6-24) mg/dL Creatinine 0.68 (0.67-1.17) mg/dL Est GFR ( Amer) 165.7 (>60) Est GFR (Non-Af Amer) 136.9 (>60) BUN/Creatinine Ratio 14.7 (8-20) Glucose 139 H (70-100) mg/dL Lactic Acid 1.9 (0.5-2.0) mmol/L Calcium 9.1 (8.6-10.3) mg/dL Magnesium 2.0 (1.9-2.7) mg/dL Total Bilirubin 0.50 (0.2-1.0) mg/dL AST 15 (13-39) U/L ALT 12 (7-52) U/L Alkaline Phosphatase 60 (34-104) U/L C-Reactive Protein 21.84 H (<8.01) mg/L Total Protein 7.4 (6.4-8.9) g/dL Albumin 4.7 (3.2-5.2) g/dL Globulin 2.7 (2-4) g/dL Albumin/Globulin Ratio 1.7 (1-3) Lipase 50 (11.0-82.0) U/L Urine Color Urine Appearance Urine pH (5-9) Ur Specific [place] (1.010-1.030) Urine Protein (Negative) Urine Ketones (Negative) Urine Blood (Negative) Urine Nitrate (Negative) Urine Bilirubin (Negative) Urine Urobilinogen (Negative) Ur Leukocyte Esterase (Negative) Urine Glucose (Negative) Urine Opiates Screen (None Detect) Ur Barbiturates Screen (None Detect) Ur Phencyclidine Scrn (None Detect) Ur Amphetamines Screen (None Detect) U Benzodiazepines Scrn (None Detect) Urine Cocaine Screen (None Detect) U Cannabinoids Screen (None Detect) Result Diagrams: 12/03/19 14:15 12/03/19 14:15 Lab Statement: Any lab studies that have been ordered have been reviewed, and results considered in the medical decision making process. Abdominal Pain Male Course/Dx - Course Course Of Treatment: Patient is evaluated for mid abdominal pain which is nonradiating. Denies any pain to the lower quadrants. Patient has also been having nausea and vomiting. Labs obtained which showed elevated white count, likely secondary to vomiting. Afebrile, vital signs are stable. Patient is given 2 L fluids. He is given Bentyl and Zofran. This with good effect. Patient states he is feeling improved. However, on reexamination, patient states he continues to feel nauseous and is having mid abdominal pain. Patient appears very lethargic, in and out of responsiveness to verbal interactions. Likely secondary to Suboxone use. CT abdomen/pelvis obtained which shows thickening of the wall of the proximal small bowel that is nonspecific although suggests the possibility of enteritis. Which less likely inflammatory bowel disease. Continues to have a gas sensation with burping. However, sxs improved. Discussed case with patient. Patient is given another dose of Zofran at this time. He will be DC'd with simethicone, zofran, maalox. He will eat soft foods, small amounts at a time and stay on a bland diet. No evidence of dehydration or infection. Pt ambulating, eating and drinking well. Appears well in NAD on discharge. - Diagnoses Differential Diagnosis/HQI/PQRI: Constipation, Diverticulitis, Other - enteritis , n/v, abd pain Provider Diagnoses: Enteritis Discharge ED - Sign-Out/Discharge Documenting (check all that apply): Patient Departure - Discharge Plan Condition: Good Disposition: HOME Prescriptions: Al Hydrox/Mg Hydrox/Simet LIQ* [Maalox Plus*] 30 ml PO Q4H PRN #1 bottle PRN Reason: Pain - Mild Ondansetron ODT TAB* [Zofran 4 MG Odt TAB*] 4 mg PO Q6H PRN #12 tab.odt MDD 4 PRN Reason: Nausea Simethicone [Gas-X] 125 mg PO TID #15 capsule Referrals: No Primary Care Phys,NOPCP [Primary Care Provider] - Additional Instructions: Take all medications as directed Eat small amounts at a time Eat a bland diet Drink plenty of fluids - Billing Disposition and Condition Condition: GOOD Disposition: Home
== END 2019-12-03 18:01 | disposition home or self-care (01) ==
LOC: ED 11:58
DX: K52.9 Noninfective gastroenteritis and colitis, unspecified (principal); J45.909 Unspecified asthma, uncomplicated; F41.9 Anxiety disorder, unspecified; F32.9 Major depressive disorder, single episode, unspecified; F17.200 Nicotine dependence, unspecified, uncomplicated; Z79.899 Other long term (current) drug therapy
CPT/HCPCS: 36415; 74177; 80053; 80307; 81003; 83605; 83690; 83735; 85025; 86140; 96365; 99283; A9270-GY; G0480; J2405; Q9967

== ENCOUNTER 2019-12-16 09:43 | Inpatient (IN) | payer OTHER ==
--- NOTE | 2019-12-16 09:56 | ED ---
Influenza-Like Illness - HPI Summary HPI Summary: Pt. is a 29 y.o male who presents to the ER for c/o fever, myalgias, productive cough, abd. pain, and SOB x 2 weeks. Past hx of IV drug use. Pt. states he has not used IV drugs in 4 weeks. Currently on suboxone. Sxs are moderate in severity. Daily smoker. Notes LUQ pain with eating and nausea. No current modifying factors. - History of Current Complaint Chief Complaint: EDFluSymptoms Time Seen by Provider: 12/16/19 09:55 Hx Obtained From: Patient - Allergy/Home Medications Allergies/Adverse Reactions: Allergies Allergy/AdvReac Type Severity Reaction Status Date / Time No Known Allergies Allergy Verified 12/03/19 08:25 Home Medications: Home Medications Buprenorphine HCl/Naloxone HCl [Suboxone 12 mg-3 mg Sl Film] 1 each SL DAILY [History Confirmed 12/16/19] Gabapentin CAP(*) [Neurontin 400 mg CAP(*)] 800 - 1,200 mg PO DAILY 12/03/19 [ History Confirmed 12/16/19] PMH/Surg Hx/FS Hx/Imm Hx Previously Healthy: Yes Endocrine/Hematology History: Denies: Hx Diabetes, Hx Thyroid Disease Cardiovascular History: Denies: Hx Hypertension Respiratory History: Reports: Hx Asthma Denies: Hx Chronic Obstructive Pulmonary Disease (COPD) GI History: Denies: Hx Ulcer Psychiatric History: Reports: Hx Anxiety, Hx Depression, Hx Inpatient Treatment - history of overdose, Hx Substance Abuse - IV heroin Infectious Disease History: No Infectious Disease History: Reports: Hx of Known/Suspected MRSA Denies: Hx Hepatitis, Hx Human Immunodeficiency Virus (HIV), History Other Infectious Disease, Traveled Outside the [place] in Last 30 Days - Family History Known Family History: Positive: Cardiac Disease, Diabetes, Non-Contributory Family History: NON CONTRIBUTORY - Social History Occupation: Unemployed Lives: With Family Alcohol Use: Rare Alcohol Amount: once per year Hx Substance Use: Yes Substance Use Type: Reports: Marijuana, Synthetic Drugs Substance Use Comment - Amount & Last Used: K2 spice Hx Tobacco Use: Yes Smoking Status (MU): Heavy Every Day Tobacco Smoker Amount Used/How Often: 1 PPD Review of Systems Positive: Fever, Chills Eyes: Negative ENT: Negative Cardiovascular: Negative Positive: Shortness Of Breath, Cough Positive: Abdominal Pain, Nausea. Negative: Vomiting, Diarrhea Genitourinary: Negative Positive: Myalgia Skin: Negative Neurological/Mental Status: Negative All Other Systems Reviewed And Are Negative: Yes Physical Exam Triage Information Reviewed: Yes Vital Signs On Initial Exam: Initial Vitals Temp Pulse Resp BP Pulse Ox 98.7 F 90 18 151/67 92 12/16/19 09:44 12/16/19 09:44 12/16/19 09:44 12/16/19 09:44 12/16/19 09:44 Vital Signs Reviewed: Yes Appearance: Positive: Ill-Appearing - Pt. lying in bed, appears SOB., Thin Skin: Positive: Warm, Dry Head/Face: Positive: Normal Head/Face Inspection Eyes: Positive: Normal, EOMI Neck: Positive: Supple Respiratory/Lung Sounds: Positive: Other - Expiratory wheeze and rhonchi in bases. Cardiovascular: Positive: Normal, RRR Abdomen Description: Positive: Other: - Abd. is soft with tenderness to LUQ. No rebound or guarding. Neurological: Positive: Normal, CN Intact II-III Psychiatric: Positive: Affect/Mood Appropriate Procedures - Sedation Patient Received Moderate/Deep Sedation with Procedure: No Diagnostics - Vital Signs Vital Signs Temp Pulse Resp BP Pulse Ox 12/16/19 09:44 98.7 F 90 18 151/67 92 - Laboratory Result Diagrams: 12/16/19 10:32 12/16/19 10:32 Lab Statement: Any lab studies that have been ordered have been reviewed, and results considered in the medical decision making process. Flu Symptom Course/Dx - Course Course Of Treatment: Patient presenting with cough, shortness of breath, abdominal pain and body aches 2 weeks. Pt. apears ill. Afebrile and not ER. Oxygen saturation 92% on room air. Patient given a breathing treatment and IV fluids started. Labs show leukocytosis of 16,000. CRP 139. CXR per radiology : IMPRESSION: PATCHY BIBASILAR CONSOLIDATION. RECOMMEND FOLLOW-UP UNTIL RESOLUTION TO EXCLUDE UNDERLYING. PULMONARY PARENCHYMAL PATHOLOGY. 1145: Pt. became hypoxic while sleeping and dropped to 85%. Placed on 2L NC. ON re- auscultation chest sounds tighter. Will given another treatment. Azithromycin given. 1240: Pt. ambulated and dropped below 90% and became very SOB. Given hypoxia hospitalist consulted for admission. Case discussed with who will admit to her service. - Diagnoses Differential Diagnosis/HQI/PQRI: Positive: Bronchitis, Influenza, Pneumonia, Upper Respiratory Infection Provider Diagnoses: Bilateral pneumonia, Hypoxia, Leukocytosis Discharge ED - Sign-Out/Discharge Documenting (check all that apply): Patient Departure - Discharge Plan Condition: Stable Disposition: ADMITTED TO [facility] - Billing Disposition and Condition Condition: STABLE Disposition: Admitted to [facility] - Attestation Statements Provider Attestation: pt seen by midlevel provider independently, based on their assessment, it was not necessary to present the case to me but I was available for consultation. I did not form a physician-patient relationship with the patient. The chart however, has been reviewed. am signing this note strictly in an administrative capacity.
[2019-12-16] MEDS ORDERED: NS 0.9% 1000 ML** 1,000 ML IV ONE (10:18)
[2019-12-16] MEDS ORDERED: Albuterol/Ipratropium NEB.SOL* Albuterol 2.5 MG/Ipratropium 0.5 MG 3 ML INH ONE ×2 (10:19→11:53)
[2019-12-16] MEDS ORDERED: Ketorolac INJ* 30 MG/ML 1 ML VIAL IV PUSH ONE (10:20)
[2019-12-16 10:54] LABS: Albumin 3.5 g/dL (3.2-5.2); Potassium 4.5 mmol/L (3.5-5.0); Total Bilirubin 0.8 mg/dL (0.2-1.0)
[2019-12-16 11:00] LABS: BUN/Creatinine Ratio 10.3 (8-20); C Reactive Protein 139.3 mg/L (<8.01); EGFR African American 199.1 (>60); EGFR Non-African American 164.5 (>60); Globulin 3.6 g/dL (2-4); Total Protein 7.1 g/dL (6.4-8.9)
[2019-12-16 11:10] LABS: Influenza A Molecular Negative (Negative); Influenza B Molecular Negative (Negative)
[2019-12-16 11:53] LABS: ABS Basophils 0.1 10^3/ul (0-0.2); ABS Eosinophils 0.2 10^3/ul (0-0.6); ABS Lymphocytes 1.6 10^3/ul (1.0-4.8); ABS Monocytes 1.4 10^3/ul (0-0.8); ABS Neutrophils 12.8 10^3/ul (1.5-7.7); Eosinophil % 1.4 %; Hematocrit 40 % (42-52); Hemoglobin 13.6 g/dL (14.0-18.0); Lymphocyte % 10.1 %; Mean Corpuscular HGB Conc 34 g/dL (31-36); Mean Corpuscular Hemoglobin 31 pg (27-31); Mean Corpuscular Volume 92 fL (80-94); Red Cell Distribution Width 13 % (10-15); White Blood Count 16.2 10^3/uL (3.5-10.8)
[2019-12-16] MEDS ORDERED: Azithromycin TAB* 250 MG PO ONE (11:55)
[2019-12-16] MEDS ORDERED: cefTRIAXone(*) 1 GM in NS 0.9% 50 ML* 50 ML IVPB ONE (12:43)
[2019-12-16 12:55] LABS: Mean Platelet Volume 9.3 fL (7.4-10.4); Platelet Count 243 10^3/uL (150-450)
[2019-12-16] MEDS ORDERED: Albuterol/Ipratropium NEB.SOL* Albuterol 2.5 MG/Ipratropium 0.5 MG 3 ML INH PRN (14:25)
[2019-12-16] MEDS ORDERED: Vancomycin per Pharmacy* NOTE FOLLOW UP SCH (15:00)
[2019-12-16] MEDS ORDERED: Vancomycin(*) 1,250 MG in NS 0.9% 250 ML* 250 ML IVPB ONE (15:00)
[2019-12-16] MEDS ORDERED: Cefepime 2 GM in Dextrose(*) 2 GM/50 ML BAG IV SCH (15:00)
[2019-12-16 15:02] LABS: Troponin I 0.01 ng/mL (<0.03)
[2019-12-16] MEDS ORDERED: Vancomycin(*) 1,000 MG BAG/ADDV ONE (15:13)
[2019-12-16] MEDS ORDERED: NS 0.9% 250 ML* 250 ML ONE (15:13)
[2019-12-16] MEDS: Enoxaparin(*) 40 MG/0.4 ML SYR SUBCUT SCH (15:24)
[2019-12-16] MEDS ORDERED: Ondansetron INJ* 2 MG/ML VIAL IV ONE (15:54)
[2019-12-16] MEDS ORDERED: Iohexol 350* (CONTRAST) 500 ML MDV IV ONE (16:02)
[2019-12-16 16:03] LABS: Hepatitis B Surface Antigen Nonreactive (Nonreactive)
[2019-12-16 16:21] LABS: Hepatitis C Antibody Negative (Negative)
[2019-12-16 16:22] LABS: HIV 4th Generation Nonreactive (Nonreactive)
[2019-12-16 18:02] LABS: Urine Appearance Cloudy; Urine Bilirubin Negative (Negative); Urine Blood Negative (Negative); Urine Color Yellow; Urine Glucose Negative (Negative); Urine Ketones Negative (Negative); Urine Nitrite Negative (Negative); Urine Protein Negative (Negative); Urine Urobilinogen Negative (Negative)
[2019-12-16] MEDS: Acetaminophen TAB* 325 MG PO PRN (20:26)
[2019-12-16] MEDS: Vancomycin(*) 1,000 MG in NS 0.9% 250 ML* 250 ML IV SCH (20:30)
--- NOTE | 2019-12-16 22:02 | HP ---
HISTORY AND PHYSICAL: DATE OF ADMISSION: 12/16/19 PROVIDER: Mariah Steve NP PRIMARY CARE PROVIDER: [facility] Karyn, Dr. Santos. ATTENDING PHYSICIAN WHILE IN THE HOSPITAL: Dr. Sarah Galvez*, (dictated by Mariah Steve NP). CHIEF COMPLAINT: Shortness of breath, cough. HISTORY OF PRESENT ILLNESS: Mr. Pro is a 29-year-old male with a past medical history significant for colitis, IV drug abuse, who presented to the emergency room with complaints of cough and congestion x2 weeks. The patient reports that over the past 3 to 4 days, he has had a temperature that he reports his highest temperature at home was 104 and the patient reports that he has had progressively worsening cough and congestion. Due to these symptoms, he presented tot he emergency room for further evaluation. Of note, the patient reports that he has had decreased appetite for the past couple of months , but over the past 2 days has been eating solid foods without difficulty. The patient also complains of left- sided chest pain, worse with cough and deep breath. He does report fevers, left- sided chest pain worse with cough and deep breath, cough, and shortness of breath. Denies any hemoptysis, nausea, vomiting, diarrhea, or abdominal pain. He denies any gross hematuria, dysuria. He denies any focal weakness, sensory loss, dysphagia, arthralgias, myalgias, rashes, lesions, open sores, psychosis, or anxiety. The patient does report that he had an open sore to his left face approximately 1 week ago that has healed. While in the emergency room, the patient had routine lab work drawn. He was found to have a white count of 16.2 and a chest x-ray that showed pneumonia. Due to these symptoms, Hospital Medicine was asked to see and evaluate him for admission. PAST MEDICAL HISTORY: Significant for: 1. Colitis. 2. IV drug abuse. PAST SURGICAL HISTORY: None. MEDICATIONS: Home medications include: 1. Gabapentin. 2. Zofran 4 mg as needed for nausea 3. Suboxone 8 mg up to 3 times a day. ALLERGIES: No known drug allergies. FAMILY HISTORY: Father with unknown type of heart disease. Father with diabetes. No reported history of cancer. SOCIAL HISTORY: The patient reports he generally smokes 1 pack of cigarettes per day. Denies any alcohol use. He does report that he has been clean from heroin for approximately 7 years. He has been clean from meth for approximately 4 years. The patient does report that he used injective tramaine for several weeks in mid October to the beginning of November 2 to 3 times a week. He does report that he last used tramaine approximately the second week of November. He lives in [place]. Surrogate decision maker in the event he is unable to make his own decisions is his father. He is a full code. REVIEW OF SYSTEMS: A 14-point review of systems was completed. All pertinent positives are mentioned in the HPI, otherwise are negative. PHYSICAL EXAMINATION GENERAL: At this time, Mr. Pro is a 29-year-old male. He is alert and oriented, resting on the stretcher in the emergency room. He is in no acute distress. VITAL SIGNS: Blood pressure was 132/72, heart rate max was 91, O2 saturation on room air was 94%, temperature was 98.3. HEENT: Head is atraumatic, normocephalic. Eyes: EOMs are intact. Sclerae anicteric and not pale. Oral mucosa is moist. Oral dentition is poor. Multiple cavities are noted. NECK: Supple. LUNGS: With scattered coarse rhonchi bilaterally. The patient does have a moist, congested cough with thick yellow to green sputum. CARDIAC: S1, S2. Regular rate and rhythm. No murmurs, rubs, or gallops. ABDOMEN: Flat, soft, and nontender. Bowel sounds are present x4. EXTREMITIES: He is able to to move all 4 extremities. There is no clubbing or cyanosis. NEUROLOGIC: He is awake, alert, and oriented x3. Speech is clear. SKIN: He has no open areas. LABORATORY DATA AND DIAGNOSTIC STUDIES: WBCs are 16.2, RBCs 4.40, hemoglobin is 13.6, hematocrit is 40, platelet count is 243. Sodium 135, potassium 4.5, chloride 102, carbon dioxide 22, anion gap is 11, BUN is 6, creatinine 0.58, glucose is 109, lactic acid 0.9, calcium 9.0. Total bilirubin 0.80, ASTs were 22, ALTs were 23, alkaline phosphatase was 69. Troponin was 0.01. C-reactive protein was 139.3. Lipase was 55. Urine was within normal limits with exception specific gravity was 1.060. Flu A and B were both negative. He had a chest x-ray, radiologist's impression: Patchy bibasilar consolidation. Recommend followup until resolution. He had an electrocardiogram which showed sinus rhythm at a rate of 72. ASSESSMENT AND PLAN: Mr. Por is a 29-year-old male with a past medical history significant for colitis and IV drug abuse, who presented to the emergency room with complaints of cough, congestion, and fever, found to have bilateral pneumonia. He will be admitted inpatient for: 1. Shortness of breath and cough. I suspect this is related to his underlying pneumonia. The patient meets sepsis with leukocytosis with white count 16.2, tachycardia of heart rate of 91. He does not meet severe sepsis as his lactic acid was 0.9 and known source of pneumonia. Given the patient's history of IV drug abuse recently in mid November and symptoms starting approximately a week after his last IV drug injection, I am going to cover him with vancomycin and cefepime. I am also going to get a CTA of his chest to rule out septic emboli. We will continue to monitor him during this hospitalization. I will also send a urine for Strep pneumoniae and legionella. I will get blood cultures. He will have a UA. I will also send a sputum culture. He will have IV normal saline overnight. 2. IV drug abuse. The patient does report he takes Suboxone 8 mg b.i.d. to t.i.d. I will confirm his Suboxone dose and start his Suboxone. 3. Tobacco abuse. The patient does smoke a pack a day. I will place him on a nicotine patch. 4. FEN. He can have a regular diet. 5. Code status. He is a full code. 6. DVT prophylaxis. I will put him on Lovenox subcu. TIME SPENT: Time spent on this admission was 60 minutes, greater than half that time was spent at the bedside reviewing events leading thus far to his hospitalization, performing physical exam, and reviewing my plan of care. I have discussed this with my attending, Dr. Sarah Galvez; she is in agreement with my plan. MARIAH STEVE, SIGN BUILDER [id number]/[facility] #: [id number] [facility]
[2019-12-16] MEDS: Ondansetron INJ* 2 MG/ML VIAL IV PRN (23:26)
[2019-12-17] MEDS: NS 0.9% 1000 ML** 1,000 ML IV SCH ×2 (00:22→17:21)
[2019-12-17] MEDS: Cefepime 2 GM in Dextrose(*) 2 GM/50 ML BAG IV SCH ×4 (00:22→23:26)
[2019-12-17] MEDS: Vancomycin(*) 1,000 MG in NS 0.9% 250 ML* 250 ML IV SCH ×2 (03:16→09:24)
[2019-12-17 06:13] LABS: Hematocrit 39 % (42-52); Mean Corpuscular HGB Conc 33 g/dL (31-36); Mean Corpuscular Hemoglobin 30 pg (27-31); Mean Corpuscular Volume 92 fL (80-94); Mean Platelet Volume 8.8 fL (7.4-10.4); Platelet Count 371 10^3/uL (150-450); Red Blood Count 4.27 10^6 /uL (4.18-5.48); Red Cell Distribution Width 14 % (10-15); White Blood Count 12.2 10^3/uL (3.5-10.8)
[2019-12-17 06:32] LABS: BUN/Creatinine Ratio 9.4 (8-20); Calcium 8.9 mg/dL (8.6-10.3); EGFR African American 177.7 (>60); EGFR Non-African American 146.8 (>60); Potassium 4.4 mmol/L (3.5-5.0)
[2019-12-17 06:43] LABS: ABS Basophils 0.1 10^3/ul (0-0.2); ABS Eosinophils 0.5 10^3/ul (0-0.6); ABS Lymphocytes 1.9 10^3/ul (1.0-4.8); ABS Monocytes 1.2 10^3/ul (0-0.8); ABS Neutrophils 8.5 10^3/ul (1.5-7.7); Eosinophil % 4.1 %; Lymphocyte % 15.5 %
[2019-12-17] MEDS: Buprenorp/Nalox 8-2 MG FILM SL FILM SCH ×2 (07:25→19:29)
[2019-12-17] MEDS: Ondansetron INJ* 2 MG/ML VIAL IV PRN ×2 (07:26→17:38)
[2019-12-17] MEDS: Nicotine PATCH 21 MG/24 HR* PATCH TRANSDERM SCH (07:26)
[2019-12-17] MEDS: Acetaminophen TAB* 325 MG PO PRN (09:24)
[2019-12-17] MEDS ORDERED: Loperamide CAP* 2 MG PO PRN (09:47)
--- NOTE | 2019-12-17 10:09 | PN ---
Subjective Date of Service: 12/17/19 Interval History: Feels short of breath at rest, difficulty eating because of it. Was placed on 3L oxygen via NC this morning. Is having frequently loose stools which he states started prior to admission. Nauseated, sweaty, overall does not feel well. Intermittent left sided chest pain with coughing. Coughing frequently, producing small amount of sputum of which he could not described. He also stated he was interested in trying to quit smoking. Patch and gum ordered. Family History: Unchanged from Admission Social History: Unchanged from Admission Past Medical History: Unchanged from Admission Objective Active Medications: Acetaminophen (Tylenol Tab*) 650 mg PO Q4H PRN PRN Reason: MILD PAIN or TEMP > 100.4 Last Admin: 12/17/19 09:24 Dose: 650 mg Albuterol/Ipratropium (Duoneb (Albuterol 2.5 Mg/Ipratropium 0.5 Mg)) 1 neb INH Q4H PRN PRN Reason: SOB/WHEEZING Buprenorphine/Naloxone (Suboxone 8 Mg-2 Mg Sl Film) 1 each SL FILM BID [facility] Last Admin: 12/17/19 07:25 Dose: 1 each Enoxaparin Sodium (Lovenox(*)) 40 mg SUBCUT Q24H [facility] Last Admin: 12/16/19 15:24 Dose: Not Given Guaifenesin (Mucinex*) 600 mg PO BID [facility] Sodium Chloride (Ns 0.9% 1000 Ml) 1,000 mls @ 100 mls/hr IV PER RATE [facility] Last Admin: 12/17/19 00:22 Dose: 100 mls/hr Cefepime HCl (Maxipime 2 Gm In Dextrose Duplex (*)) 2 gm in 50 mls @ 100 mls/ hr IV 0630,1430,2230 [facility] Last Admin: 12/17/19 06:49 Dose: 100 mls/hr Vancomycin HCl 1,000 mg/ (Sodium Chloride) 250 mls @ 166.667 mls/hr IV Q6H [facility] Last Admin: 12/17/19 09:24 Dose: 166.667 mls/hr Loperamide HCl (Imodium Cap*) 2 mg PO .SEE DIRECTIONS PRN PRN Reason: DIARRHEA Nicotine (Nicotine Patch 21 Mg/24 Hr*) 1 patch TRANSDERM DAILY [facility] Last Admin: 12/17/19 07:26 Dose: 1 patch Ondansetron HCl (Zofran Inj*) 4 mg IV Q6H PRN PRN Reason: NAUSEA Last Admin: 12/17/19 07:26 Dose: 4 mg Pharmacy Consult (Vancomycin Per Pharmacy*) 1 note FOLLOW UP .VANC PER PHARMACY HEMA; Protocol Pharmacy Profile Note (Vancomycin Trough Check) 1 note FOLLOW UP 1530 ONE Stop: 12/17/19 15:31 Pharmacy Profile Note (Nicotine Patch Removal Note*) 1 note PATCH OFF 2100 [facility] Vital Signs - 8 hr 12/17/19 12/17/19 12/17/19 03:56 07:48 07:52 Temperature 98 F 98.0 F Pulse Rate 58 64 Respiratory 16 20 Rate Blood Pressure 106/48 138/60 (mmHg) O2 Sat by Pulse 94 89 93 Oximetry Oxygen Devices in Use Now: Nasal Cannula - 3L via NC Appearance: Pale, diaphoretic, ill looking young gentleman seen resting in bed. Eyes: No Scleral Icterus, PERRLA Ears/Nose/Mouth/Throat: NL Teeth, Lips, Gums, Clear Oropharnyx, Mucous Membranes Moist Neck: NL Appearance and Movements; NL JVP, Trachea Midline Respiratory: Symmetrical Chest Expansion and Respiratory Effort, - - Some accessory muscle use noted. Inspiratory and expiratory rhonchi with scattered wheezing throughout both lung torres. Cardiovascular: NL Sounds; No Murmurs; No JVD, RRR, No Edema Abdominal: NL Sounds; No Tenderness; No Distention, No Hepatosplenomegaly Lymphatic: No Cervical Adenopathy Extremities: No Edema, No Clubbing, Cyanosis Skin: No Rash or Ulcers, No Nodules or Sclerosis Neurological: Alert and Oriented x 3 Lines/Tubes/Other Access: Clean, Dry and Intact Peripheral IV Result Diagrams: 12/18/19 11:50 12/17/19 05:20 Microbiology and Other Data: Microbiology 12/16/19 17:51 Legionella Urinary Antigen - Final Urine Negative Legionella Antigen Streptococcus pneumoniae Ag Screen - Final Negative S. pneumo Antigen 12/16/19 16:40 Nasal Screen MRSA (PCR) - Final Nasal Mrsa Detected 12/16/19 14:09 Gram Stain - Final Sputum Assess/Plan/Problems-Billing Assessment: This is a 29 yea rold male with a past medical history of IV drug use who was admitted on 12/16/19 for bibasalar pneumonia. - Patient Problems (1) Bilateral pneumonia Status: Acute Code(s): J18.9 - PNEUMONIA, UNSPECIFIED ORGANISM SNOMED Code(s ): 242022202 Comment: - Due to history of IV drug use, started on vanco and cefepime which I will continue. Leukocytosis is improving. -Ordered mucinex to loosen sputum. -Duonebs as needed. (2) Acute respiratory failure with hypoxia Status: Acute Code(s): J96.01 - ACUTE RESPIRATORY FAILURE WITH HYPOXIA SNOMED Code(s): 84601642 Comment: -Required 3L oxygen via nasal cannula this AM to maintain sats above 90%. If this mcdonald snot improve after a nebulizer, will order prednisone. (3) Substance abuse Status: Acute Code(s): F19.10 - OTHER PSYCHOACTIVE SUBSTANCE ABUSE, UNCOMPLICATED SNOMED Code(s): 75070855 Comment: -Is seen by Danielle Mancuso. Continue suboxone. Last injected one week prior to symptoms starting at the beginning of November. (4) Nicotine dependence Status: Acute Code(s): F17.200 - NICOTINE DEPENDENCE, UNSPECIFIED, UNCOMPLICATED SNOMED Code(s): 64286396 Comment: -Nicotine patches and gum ordered. Would like these for discharge. (5) Diarrhea Status: Acute Code(s): R19.7 - DIARRHEA, UNSPECIFIED SNOMED Code(s): 40148058 Comment: -Has had diarrhea since prior to admission. He had been diagnosed with colitis in [facility] several weeks ago. Intensity has not changed since startof ABX. Ordered loperamide. (6) DVT prophylaxis Status: Acute Code(s): Z29.9 - ENCOUNTER FOR PROPHYLACTIC MEASURES, UNSPECIFIED SNOMED Code(s): 367800100 Comment: -Continue enoxaparin (7) Full code status Status: Acute Code(s): Z78.9 - OTHER SPECIFIED HEALTH STATUS SNOMED Code(s) : 472725982 Status and Disposition: Disposition: Admit inpatient to . Condition: Guarded. Attending: Kimber Agudelo
[2019-12-17] MEDS: guaiFENesin ER TAB 600 MG PO SCH ×2 (10:41→21:54)
[2019-12-17] MEDS: Nicotine* 2MG (FRUIT FLAVOR) GUM PO PRN ×2 (10:41→17:38)
[2019-12-17] MEDS ORDERED: Vancomycin Trough Check NOTE FOLLOW UP ONE (15:30)
[2019-12-17] MEDS ORDERED: Azithromycin 500 mg/250 ml NS 500 MG/250 ML BAG IVPB SCH (17:00)
[2019-12-17] MEDS ORDERED: cloNIDine TAB* 0.1 MG PO ONE (17:09)
[2019-12-17] MEDS: Enoxaparin(*) 40 MG/0.4 ML SYR SUBCUT SCH (17:21)
[2019-12-17] MEDS ORDERED: Nicotine Patch Removal NOTE PATCH OFF SCH (21:00)
[2019-12-18] MEDS: Ondansetron INJ* 2 MG/ML VIAL IV PRN ×3 (00:51→12:57)
[2019-12-18] MEDS ORDERED: PROCHLORPERAZINE INJ 5 MG/ML 2 ML VIAL IV ONE (04:30)
[2019-12-18] MEDS: NS 0.9% 1000 ML** 1,000 ML IV SCH (04:53)
[2019-12-18] MEDS: Cefepime 2 GM in Dextrose(*) 2 GM/50 ML BAG IV SCH (05:41)
[2019-12-18] MEDS: Buprenorp/Nalox 8-2 MG FILM SL FILM SCH (07:52)
[2019-12-18] MEDS: guaiFENesin ER TAB 600 MG PO SCH (07:52)
[2019-12-18] MEDS: Nicotine PATCH 21 MG/24 HR* PATCH TRANSDERM SCH (07:53)
[2019-12-18 08:16] VITALS: BP 134/73
[2019-12-18 12:00] LABS: Hematocrit 39 % (42-52); Hemoglobin 13.3 g/dL (14.0-18.0); Mean Corpuscular HGB Conc 34 g/dL (31-36); Mean Corpuscular Hemoglobin 31 pg (27-31); Mean Corpuscular Volume 90 fL (80-94); Mean Platelet Volume 8.4 fL (7.4-10.4); Platelet Count 413 10^3/uL (150-450); Red Blood Count 4.31 10^6 /uL (4.18-5.48); Red Cell Distribution Width 13 % (10-15); White Blood Count 13.5 10^3/uL (3.5-10.8)
[2019-12-18 13:01] LABS: ABS Basophils 0.1 10^3/ul (0-0.2); ABS Eosinophils 0.2 10^3/ul (0-0.6); ABS Lymphocytes 1.8 10^3/ul (1.0-4.8); ABS Monocytes 0.9 10^3/ul (0-0.8); ABS Neutrophils 10.4 10^3/ul (1.5-7.7); Eosinophil % 1.7 %; Lymphocyte % 13.4 %
[2019-12-18 14:10] LABS: Hepatitis C Antibody Negative (Negative)
--- NOTE | 2019-12-19 00:20 | DS ---
AMENDED REPORT NOW INCLUDES DESIGNATED COSIGNER - ESIGNED BEFORE ADJUSTMENTS CC: Dr. Mancuso * DISCHARGE SUMMARY: DATE OF ADMISSION: 12/16/19 DATE OF DISCHARGE: 12/18/19 PROVIDER: Caio White NP ATTENDING PHYSICIAN: Dr. Burkett.* (DICTATED BY Mike SERNA) PRIMARY CARE PHYSICIAN: Dr. Mancuso. CONSULTING PHYSICIAN: None. PRIMARY DIAGNOSES: 1. Bilateral lower lobe pneumonia. 2. 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 3. Nicotine dependence. SECONDARY DIAGNOSES: 1. Colitis. 2. IV drug use. PROCEDURES: None. STUDIES: Chest x-ray showed patchy bibasilar consolidation, recommend followup until resolution to exclude underlying pulmonary parenchymal pathology. CTA of the chest showed no pulmonary artery filling defect to suggest pulmonary embolism. There has been interval development of diffuse pattern of mixed interstitial and airspace disease throughout both lungs. PERTINENT LAB DATA: White blood cell count 13.5, hemoglobin 13.3, hematocrit 39 , creatinine 0.64, glucose 106, C-reactive protein 139.30 and he was negative for HIV, hep C, hep B and hep A, also negative for influenza A and B. HISTORY OF PRESENT ILLNESS/HOSPITAL COURSE: This is a 29-year-old male with a past medical history significant for IV drug use, colitis, who came to the emergency room on 12/16/19 for a 2 week history of cough and congestion and that 4 days prior to coming to emergency room he developed a fever as high as 104 with progressing worse cough and congestion. In the emergency room, a chest x-ray and chest CTA was performed which did rule out a pulmonary embolism, however, did show bibasilar consolidation. At that time, he met the criteria for sepsis with leukocytosis with white blood cell count of 16.2 and he was tachycardiac with a heart rate of 91. He did not meet severe sepsis criteria and was treated with IV fluids and antibiotics. The sepsis did resolve. Sputum culture was sent and it came back positive for Haemophilus influenzae. His blood cultures did show Staphylococcus hominis in the aerobic bottle, but it was felt to be a contaminant. He was negative for legionella or Strep pneumoniae antigen. Initially because of his history of IV drug use, he was started on vancomycin and cefepime, however, when his blood cultures came back negative for MRSA, he was switched over to azithromycin and cefepime. Yesterday, he was having difficulty breathing required supplemental oxygen and lung sounded rhonchorus, however, when he was given a flutter valve and incentive spirometer as well as breathing treatment, he was able to cough up good amount of white yellow sputum and was breathing much better after that and was able to come off oxygen supplementation in the afternoon. Today, he continued to feel much better despite a small bump in his white blood cell count though continued to have no fevers and was able to breath better, less dyspnea upon exertion, and stated that he felt ready to go home. He was able to verbalize how his smoking could contribute to delay in his healing as well as could lead to COPD, particularly with questionable CT scan of interstitial and air space disease. REVIEW OF SYSTEMS: A 12-point system review was performed, which was positive for cough, sputum production, shortness of breath with exertion, but negative for lightheadedness, fever, chills, palpitations, chest pain, abdominal pain, nausea, vomiting, or issues moving his bowel or bladder. No longer having diarrhea as he had done yesterday. PHYSICAL EXAMINATION: Vital Signs: 98.4 Fahrenheit, 70 pulse, 20 respirations , 93% oxygen on room air, 134/73 blood pressure. General: This is a pale, chronically ill looking young man seen sitting up in the bed, in no acute distress. HEENT: Conjunctivae pink and moist. PERRLA. EOMs intact. Oropharynx clear. Mucous membranes moist. Neck is supple. Cardiac: S1, S2 present. Heart rate regular. No murmurs, gallops, or rubs appreciated. Fine crackles to bilateral bases otherwise clear on room air. Abdomen: Soft, nontender, nondistended with positive bowel sounds x4. Musculoskeletal: No clubbing or cyanosis of the digits. Neurologic: Sensation intact to light touch. No focal deficits appreciated. Skin is intact, no open areas or rashes noted. Psych: He is alert and oriented x3. Thought content organized. DISCHARGE PLAN: He is to be discharged home with a regular diet. Activity is as tolerated and to avoid smoky environments and to decrease his smoking if not cease altogether. He is to return to the hospital should he develop shortness of breath not alleviated by rest and albuterol inhaler as well as chest pain, fever of 101 degrees or higher. PLAN FOR EACH CONDITION: 1. Bilateral pneumonia. He is to go home with flutter valve and incentive spirometer and to use them as often. He can think about it. He was also discharged with an albuterol inhaler and 5 more days worth of p.o. azithromycin and cefdinir. He was also sent home with a script for guaifenesin to assist in coughing up his sputum. I ask that he follow up with Dr. Mancuso within the next few days for a checkup. 2. Interstitial and airspace disease throughout both lungs. This was an incidental finding on his CTA. He has been a heavy smoker for a number of years which may have contributed to this. It would behoove him to be checked for alpha trypsin 1 gene and he is aware of that smoking cessation will help decrease the damage to his lungs. 3. Nicotine dependence. The patient seem to have craving control on 21 mg nicotine patch for 1 week's worth for his discharge and to follow up with Dr. Mancuso for additional nicotine replacement therapy. 4. History of IV drug use. He takes Suboxone twice a day which he is to continue upon discharge and to follow up with Dr. Mancuso as he was asking for something additional for anxiety. I defer to her judgment. MEDICATIONS: New medications upon discharge: 1. Albuterol inhaler 1 to 2 puffs inhalation q.4 hours p.r.n. for shortness of breath. 2. Azithromycin 500 mg p.o. daily x5 days. 3. Cefdinir 300 mg p.o. b.i.d. x5 days. 4. Guaifenesin 600 mg p.o. b.i.d. x1 week. 5. Nicotine patch 21 mg 1 patch transdermally daily x1 week. Medications to continue on discharge: 1. Suboxone 12 mg - 3 mg sublingual film twice daily. 2. Gabapentin 800 to 1200 mg p.o. daily. CONDITION UPON DISCHARGE: Fair. DISPOSITION: To home. TIME SPENT: Time spent on the patient is about 60 minutes with 30 of that spent [id number]. CAIO WHITE, OPEN HEARTH WORKER [id number]/[facility] #: [id number] [facility]
== END 2019-12-18 13:50 | disposition home or self-care (01) | DRG 720 ==
LOC: ED 09:43 → MEDTELE 14:05
PROVIDERS: ADMIT Internal Medicine; ATTEND Internal Medicine
DX: A41.9 Sepsis, unspecified organism (principal); J18.9 Pneumonia, unspecified organism; J96.01 Acute respiratory failure with hypoxia; J84.9 Interstitial pulmonary disease, unspecified; J45.909 Unspecified asthma, uncomplicated; F17.210 Nicotine dependence, cigarettes, uncomplicated; F41.9 Anxiety disorder, unspecified; K52.9 Noninfective gastroenteritis and colitis, unspecified; B96.3 Hemophilus influenzae [H. influenzae] as the cause of diseases classified elsewhere; F32.9 Major depressive disorder, single episode, unspecified; F11.10 Opioid abuse, uncomplicated; Z86.14 Personal history of Methicillin resistant Staphylococcus aureus infection; Z79.899 Other long term (current) drug therapy
CPT/HCPCS: 36415; 71046; 71275; 80048; 80053; 80074; 81003; 83605; 83690; 84484; 85025; 86140; 86803; 87040; 87070; 87077; 87150; 87185; 87205; 87389; 87641; 87899; 93005; 94640; 96365; 99284; A9270-GY; J0456; J0692; J0696; J0780; J1650; J1885; J2405; J3370; Q9967

== ENCOUNTER 2023-10-26 14:14 | Inpatient (IN) ==
[2023-10-26 15:19] LABS: ABS Eosinophils 0.2 10^3/uL (0.0-0.5); ABS Lymphocytes 0.9 10^3/uL (1.0-4.8); ABS Monocytes 0.5 10^3/uL (0.0-1.1); ABS Neutrophils 4.8 10^3/uL (1.5-7.6); Eosinophil % 2.5 %; Hematocrit 37.4 % (38-53); Hemoglobin 12.4 g/dL (13.2-16.3); Lymphocyte % 14.5 %; Mean Corpuscular Hemoglobin 27.2 pg (27-33); Mean Corpuscular Volume 82.3 fL (80-97); Mean Platelet Volume 7.4 fL (7.5-11.2); Platelet Count 398 10^3/uL (150-450); Red Blood Count 4.55 10^6/uL (4.06-5.63); Red Cell Distribution Width 14.7 % (12-17); White Blood Count 6.4 10^3/uL (3.6-10.2)
[2023-10-26 15:36] LABS: Albumin 3.6 g/dL (3.2-5.2); Albumin/Globulin Ratio 1.2 (1-3); C Reactive Protein 5.89 mg/L (<8.01); Calcium 8.9 mg/dL (8.6-10.3); Creatinine, Serum 0.6 mg/dL (0.67-1.17); Globulin 3.1 g/dL (2-4); Potassium 3.9 mmol/L (3.5-5.0); Total Bilirubin 0.4 mg/dL (0.2-1.0); Total Protein 6.7 g/dL (6.4-8.9); eGFR CKD-EPI 129.9 (>60)
[2023-10-26] MEDS: Cefepime 2 GM in Dextrose 2 GM/50 ML BAG IV ONE (16:05)
[2023-10-26] MEDS: metroNIDAZOLE IV 500 MG/100ML 500 MG/100 ML BAG IVPB ONE (16:24)
[2023-10-26] MEDS: Vancomycin 1,000 MG in NS 0.9% 250 ml 250 ML IVPB ONE (16:29)
[2023-10-26] MEDS: Iohexol 350 (CONTRAST) 500 ML MDV IV ONE (17:11)
[2023-10-26] MEDS ORDERED: Ondansetron 4 mg VIAL 2 MG/ML 2 ml VIAL ONE (17:22)
[2023-10-26] MEDS: Morphine 4 MG/ML VIAL (1 ml) IV ONE (17:24)
[2023-10-26] MEDS: Ondansetron 4 mg VIAL 2 MG/ML 2 ml VIAL IV ONE (17:25)
[2023-10-26] MEDS ORDERED: Morphine 2 MG/ML SYRINGE IV PRN (18:21)
[2023-10-26] MEDS ORDERED: Vancomycin per Pharmacy 1 EA NOTE FOLLOW UP SCH (19:00)
[2023-10-26] MEDS ORDERED: Ondansetron 4 mg VIAL 2 MG/ML 2 ml VIAL IV PRN (19:14)
[2023-10-26] MEDS: Lactated Ringers 1000 ml BAG 1,000 ML IV SCH (19:39)
[2023-10-26] MEDS: Morphine 2 MG/ML SYRINGE IV PRN (21:35)
[2023-10-26] MEDS ORDERED: Lorazepam PYXIS KEY PRN (22:39)
[2023-10-26] MEDS: LORazepam 2 mg VIAL 1 ml IV PUSH ONE (22:49)
[2023-10-26] MEDS: Vancomycin 1,250 MG in NS 0.9% 250 ml 250 ML IVPB SCH (23:09)
[2023-10-27] MEDS ORDERED: Vancomycin 1,000 MG in NS 0.9% 250 ml 250 ML IVPB ONE (02:00)
[2023-10-27] MEDS ORDERED: Lorazepam PYXIS KEY PRN ×2 (02:11→06:08)
[2023-10-27] MEDS: LORazepam 2 mg VIAL 1 ml IV PUSH ONE ×2 (02:17→06:35)
[2023-10-27] MEDS: LORazepam 2 mg VIAL 1 ml ONE (06:38)
[2023-10-27] MEDS ORDERED: Ondansetron ODT 4 mg TAB 4 MG TAB PO PRN (16:01)
[2023-10-27] MEDS: Vancomycin 1,250 MG in NS 0.9% 250 ml 250 ML IVPB SCH (16:51)
[2023-10-28] MEDS: diazePAM INJ CARPUJECT 5 MG/ML SYRINGE IV PRN (02:50)
[2023-10-28] MEDS ORDERED: cefTRIAXone 2 gm/50 mL D5W 2 GM/50 ML BAG IV SCH (07:30)
[2023-10-28] MEDS: Naloxone Nasal Spray 4 MG/0.1 ML NASAL.SPR INTRANASAL ONE ×2 (09:22→09:24)
[2023-10-28] MEDS ORDERED: Rocuronium 50 mg VIAL 10 mg/ml 5 ml VIAL (50 mg) ONE (09:56)
[2023-10-28] MEDS ORDERED: Etomidate 40 mg/20 ml (2 MG/ML) 20 ml VIAL (40 mg) ONE (09:56)
[2023-10-28] MEDS: Propofol 10 mg/ml 100 ML BTL 1,000 MG/100 ML BTL IV SCH (10:10)
[2023-10-28] MEDS: Propofol 10 mg/ml 100 ML BTL 1,000 MG/100 ML BTL ONE (10:51)
[2023-10-28] MEDS: Succinylcholine 200 mg VIAL 20 mg/ml 10 ml VIAL (200 mg) ONE (10:52)
[2023-10-28] MEDS: Chlorhexidine MOUTHWASH 0.12% 15 ML UDC TOPICAL SCH (10:52)
[2023-10-28] MEDS: Rocuronium 50 mg VIAL 10 mg/ml 5 ml VIAL (50 mg) ONE ×2 (10:52)
[2023-10-28] MEDS: Vancomycin Trough Check NOTE FOLLOW UP ONE (11:00)
[2023-10-28 11:09] LABS: ABS Basophils 0.1 10^3/uL (0.0-0.1); ABS Monocytes 1.1 10^3/uL (0.0-1.1); ABS Neutrophils 18.8 10^3/uL (1.5-7.6); ABS Nucleated RBC 0.02 10^3/ul; Eosinophil % 0.1 %; Hematocrit 41.6 % (38-53); Hemoglobin 13.5 g/dL (13.2-16.3); Lymphocyte % 4.8 %; Mean Corpuscular Hemoglobin 26.9 pg (27-33); Mean Corpuscular Hgb Conc 32.5 g/dL (31-36); Mean Corpuscular Volume 82.7 fL (80-97); Mean Platelet Volume 7.3 fL (7.5-11.2); Nucleated Red Blood Cells % 0.1 %/100WBC (0.0-0.8); Platelet Count 477 10^3/uL (150-450); Red Blood Count 5.04 10^6/uL (4.06-5.63); Red Cell Distribution Width 14.8 % (12-17); White Blood Count 21.1 10^3/uL (3.6-10.2)
[2023-10-28] MEDS: Pantoprazole VIAL 40 MG VIAL IV SCH (11:10)
[2023-10-28] MEDS: Enoxaparin 40 MG/0.4 ML SYR SUBCUT SCH (11:10)
[2023-10-28 11:29] LABS: Albumin 3.8 g/dL (3.2-5.2); Albumin/Globulin Ratio 1.2 (1-3); Calcium 8.6 mg/dL (8.6-10.3); Creatinine, Serum 0.55 mg/dL (0.67-1.17); Globulin 3.2 g/dL (2-4); Potassium 3.9 mmol/L (3.5-5.0); Total Bilirubin 0.6 mg/dL (0.2-1.0); eGFR CKD-EPI 133.4 (>60)
[2023-10-28 11:30] LABS: Calcium 8.6 mg/dL (8.6-10.3); Creatinine, Serum 0.55 mg/dL (0.67-1.17); Creatinine, Serum 0.58 mg/dL (0.67-1.17); Potassium 3.9 mmol/L (3.5-5.0); eGFR CKD-EPI 131.2 (>60); eGFR CKD-EPI 133.4 (>60)
[2023-10-28 11:43] LABS: Resp Rate 20
[2023-10-28 11:46] LABS: PCO2 Arterial 58 mmHg (35-45); PO2 Arterial 69 mmHg (80-100)
[2023-10-28 11:54] LABS: Vancomycin Trough 7.2 mcg/mL
[2023-10-28] MEDS: fentaNYL INFUSION 50 mcg/mL VL 2,500 MCG/50 ML VIAL IV SCH (12:05)
[2023-10-28 12:45] LABS: Urine Appearance Turbid; Urine Bilirubin Negative (Negative); Urine Blood Negative (Negative); Urine Color Yellow; Urine Glucose 2+(150 mg/dL) (Negative); Urine Ketones Negative (Negative); Urine Nitrite Negative (Negative); Urine Protein 1+(30 mg/dL) (Negative); Urine Specific Gravity 1.017 (1.002-1.030); Urine Urobilinogen Negative (Negative)
[2023-10-28 13:25] LABS: Urine Amorphous Crystals Present /HPF (Absent); Urine Bacteria 3+ (Absent); Urine Red Blood Cell 3+(>10/hpf) (Absent); Urine Squamous Epithelial Cell Present (Absent); Urine White Blood Cell 1+(6-10/hpf) (Absent)
[2023-10-28] MEDS: Midazolam 5 mg/5 ml VIAL 1 mg/ml 5 ml VIAL (5 mg) IV SLOW PU PRN ×2 (14:59→18:04)
[2023-10-28] MEDS ORDERED: Zosyn per Pharmacy NOTE FOLLOW UP SCH (15:00)
[2023-10-28] MEDS: ZOSYN 3.375 GM x ONE DOSE over 30 miuntes IV (15:06)
[2023-10-28] MEDS: ZOSYN 3.375 GM Q8H per EXTENDED INFUSION IV SCH (17:54)
[2023-10-28] MEDS: Midazolam PREMIXBAG 1 MG/ML NS 100 ML IV SCH (17:59)
[2023-10-29 04:42] LABS: ABS Basophils 0.1 10^3/uL (0.0-0.1); ABS Lymphocytes 1.1 10^3/uL (1.0-4.8); ABS Monocytes 0.8 10^3/uL (0.0-1.1); ABS Neutrophils 14.5 10^3/uL (1.5-7.6); ABS Nucleated RBC 0.01 10^3/ul; Hematocrit 38.8 % (38-53); Hemoglobin 12.9 g/dL (13.2-16.3); Lymphocyte % 6.4 %; Mean Corpuscular Hemoglobin 27.2 pg (27-33); Mean Corpuscular Hgb Conc 33.3 g/dL (31-36); Mean Corpuscular Volume 81.7 fL (80-97); Mean Platelet Volume 7.6 fL (7.5-11.2); Platelet Count 421 10^3/uL (150-450); Red Blood Count 4.75 10^6/uL (4.06-5.63); White Blood Count 16.4 10^3/uL (3.6-10.2)
[2023-10-29 05:00] LABS: Calcium 8.8 mg/dL (8.6-10.3); Creatinine, Serum 0.57 mg/dL (0.67-1.17); Potassium 3.7 mmol/L (3.5-5.0); eGFR CKD-EPI 131.9 (>60)
[2023-10-29] MEDS: fentaNYL INFUSION 50 mcg/mL VL 2,500 MCG/50 ML VIAL IV SCH (11:25)
[2023-10-29] MEDS: Acetaminophen IV 1 GM/100ML 1,000 MG/100 ML BAG IV PRN (15:21)
[2023-10-30 04:14] LABS: ABS Basophils 0.1 10^3/uL (0.0-0.1); ABS Lymphocytes 1.9 10^3/uL (1.0-4.8); ABS Monocytes 1.2 10^3/uL (0.0-1.1); ABS Neutrophils 11.9 10^3/uL (1.5-7.6); Eosinophil % 0.2 %; Hematocrit 39.1 % (38-53); Hemoglobin 12.7 g/dL (13.2-16.3); Lymphocyte % 12.3 %; Mean Corpuscular Hemoglobin 26.8 pg (27-33); Mean Corpuscular Hgb Conc 32.5 g/dL (31-36); Mean Corpuscular Volume 82.4 fL (80-97); Mean Platelet Volume 7.7 fL (7.5-11.2); Platelet Count 371 10^3/uL (150-450); Red Blood Count 4.75 10^6/uL (4.06-5.63)
[2023-10-30 05:02] LABS: Creatinine, Serum 0.61 mg/dL (0.67-1.17); Magnesium 2.1 mg/dL (1.9-2.7); Potassium 3.4 mmol/L (3.5-5.0); eGFR CKD-EPI 129.3 (>60)
[2023-10-30] MEDS: KCL 20 MEQ/100 ML IVPREMIX 20 MEQ/100 ML BAG IV SCH (08:38)
[2023-10-30] MEDS ORDERED: Sulfur Hexaflouride MICROSPHR 25 MG VIAL ONE (11:12)
[2023-10-30] MEDS: ceFAZolin 2 GM in NS PREMIX 2 GM/100 ML BAG IVPB SCH (13:10)
[2023-10-30 13:29] LABS: HIV 4th Generation Nonreactive (Nonreactive)
[2023-10-31 05:44] LABS: ABS Basophils 0.1 10^3/uL (0.0-0.1); ABS Eosinophils 0.1 10^3/uL (0.0-0.5); ABS Lymphocytes 1.3 10^3/uL (1.0-4.8); ABS Monocytes 1.3 10^3/uL (0.0-1.1); ABS Neutrophils 11.6 10^3/uL (1.5-7.6); Eosinophil % 0.9 %; Hematocrit 36.9 % (38-53); Hemoglobin 11.9 g/dL (13.2-16.3); Mean Corpuscular Hemoglobin 26.8 pg (27-33); Mean Corpuscular Hgb Conc 32.2 g/dL (31-36); Mean Corpuscular Volume 83.3 fL (80-97); Platelet Count 349 10^3/uL (150-450); Red Blood Count 4.44 10^6/uL (4.06-5.63); Red Cell Distribution Width 15.4 % (12-17); White Blood Count 14.3 10^3/uL (3.6-10.2)
[2023-10-31 06:37] LABS: Calcium 8.6 mg/dL (8.6-10.3); Creatinine, Serum 0.53 mg/dL (0.67-1.17); Phosphorus 3.5 mg/dL (2.5-5.0); Potassium 3.9 mmol/L (3.5-5.0); eGFR CKD-EPI 134.9 (>60)
[2023-10-31] MEDS: Acetylcysteine INHALATION SOL 200 MG/ML NEB.SOLN 10 ML ONE (09:45)
[2023-10-31] MEDS ORDERED: fentaNYL 100 mcg/2 ml 50 MCG/ML VIAL ONE (14:08)
[2023-10-31] MEDS ORDERED: Midazolam 5 mg/5 ml VIAL 1 mg/ml 5 ml VIAL (5 mg) ONE (14:08)
[2023-10-31] MEDS: Iohexol 350 (CONTRAST) 500 ML MDV IV ONE (16:16)
[2023-10-31] MEDS: metroNIDAZOLE IV 500 MG/100ML 500 MG/100 ML BAG IVPB SCH (18:02)
[2023-10-31] MEDS: ceFAZolin 2 GM PREMIX 2 GM/50 ML BAG IV SCH (19:22)
[2023-11-01 05:14] LABS: ABS Eosinophils 0.1 10^3/uL (0.0-0.5); ABS Lymphocytes 1.3 10^3/uL (1.0-4.8); ABS Monocytes 0.9 10^3/uL (0.0-1.1); ABS Neutrophils 5.2 10^3/uL (1.5-7.6); Eosinophil % 1.9 %; Hematocrit 34.2 % (38-53); Hemoglobin 11.3 g/dL (13.2-16.3); Lymphocyte % 17.1 %; Mean Corpuscular Hemoglobin 27.4 pg (27-33); Mean Corpuscular Volume 82.8 fL (80-97); Mean Platelet Volume 8.3 fL (7.5-11.2); Nucleated Red Blood Cells % 0.1 %/100WBC (0.0-0.8); Platelet Count 330 10^3/uL (150-450); Red Blood Count 4.13 10^6/uL (4.06-5.63); Red Cell Distribution Width 15.4 % (12-17); White Blood Count 7.6 10^3/uL (3.6-10.2)
[2023-11-01 05:31] LABS: Albumin 3.1 g/dL (3.2-5.2); Calcium 8.7 mg/dL (8.6-10.3); Creatinine, Serum 0.53 mg/dL (0.67-1.17); Globulin 3.2 g/dL (2-4); Magnesium 1.9 mg/dL (1.9-2.7); Potassium 3.8 mmol/L (3.5-5.0); Total Bilirubin 0.3 mg/dL (0.2-1.0); Total Protein 6.3 g/dL (6.4-8.9); eGFR CKD-EPI 134.9 (>60)
[2023-11-01] MEDS: Metoprolol Tartrate 5 mg VIAL 5 ml VIAL (1 mg/ml) IV PRN (19:38)
[2023-11-02 05:49] LABS: ABS Basophils 0.1 10^3/uL (0.0-0.1); ABS Eosinophils 0.2 10^3/uL (0.0-0.5); ABS Lymphocytes 1.3 10^3/uL (1.0-4.8); ABS Monocytes 0.8 10^3/uL (0.0-1.1); ABS Neutrophils 3.8 10^3/uL (1.5-7.6); Eosinophil % 2.8 %; Hematocrit 34.7 % (38-53); Hemoglobin 11.4 g/dL (13.2-16.3); Lymphocyte % 21.4 %; Mean Corpuscular Hemoglobin 27.1 pg (27-33); Mean Corpuscular Hgb Conc 32.8 g/dL (31-36); Mean Corpuscular Volume 82.5 fL (80-97); Mean Platelet Volume 8.2 fL (7.5-11.2); Platelet Count 335 10^3/uL (150-450); Red Blood Count 4.21 10^6/uL (4.06-5.63); White Blood Count 6.1 10^3/uL (3.6-10.2)
[2023-11-02 06:05] LABS: Calcium 8.5 mg/dL (8.6-10.3); Creatinine, Serum 0.5 mg/dL (0.67-1.17); Potassium 3.7 mmol/L (3.5-5.0); eGFR CKD-EPI 137.3 (>60)
[2023-11-02] MEDS: Glycerin ADULT 2.4 gm SUPP PR ONE (10:57)
[2023-11-02] MEDS ORDERED: Polyethylene Glycol 3350 17 GM PACKET PO SCH (11:00)
[2023-11-02] MEDS ORDERED: Senna TAB 8.6 mg TAB PO SCH (11:00)
[2023-11-02] MEDS: Methadone ORALSYR CONC LIQ 10 MG/ML SCH (14:57)
[2023-11-02] MEDS: Naloxone 0.4 mg VIAL 0.4 mg/ml 1 ml VIAL IV PUSH PRN (15:05)
[2023-11-02 15:55] LABS: Bartonella Henselae IgG <1:128 titer (<1:128); Bartonella Henselae IgM <1:20 titer (<1:20); Bartonella Quintana IgG <1:128 titer (<1:128); Bartonella Quintana IgM <1:20 titer (<1:20)
[2023-11-02] MEDS: Iodixanol (CONTRAST) 320 MG/ML 100 ML SDV IV ONE (16:03)
[2023-11-02] MEDS: Flumazenil 0.5 mg/5 ml 0.1 MG/ML 5 ml VIAL ONE (17:20)
[2023-11-02] MEDS: Naloxone 4 mg VIAL 0.4 MG/ML 10 ml VIAL (4 mg) ONE (18:21)
[2023-11-03 03:43] LABS: ABS Eosinophils 0.1 10^3/uL (0.0-0.5); ABS Lymphocytes 1.9 10^3/uL (1.0-4.8); ABS Neutrophils 5.6 10^3/uL (1.5-7.6); Eosinophil % 0.7 %; Hematocrit 36.7 % (38-53); Hemoglobin 12.3 g/dL (13.2-16.3); Lymphocyte % 22.1 %; Mean Corpuscular Hemoglobin 27.1 pg (27-33); Mean Corpuscular Hgb Conc 33.4 g/dL (31-36); Mean Corpuscular Volume 81.1 fL (80-97); Mean Platelet Volume 8.5 fL (7.5-11.2); Platelet Count 366 10^3/uL (150-450); Red Blood Count 4.53 10^6/uL (4.06-5.63); White Blood Count 8.6 10^3/uL (3.6-10.2)
[2023-11-03 03:50] LABS: Calcium 8.6 mg/dL (8.6-10.3); Creatinine, Serum 0.47 mg/dL (0.67-1.17); eGFR CKD-EPI 139.8 (>60)
[2023-11-03] MEDS: Anidulafungin 200 MG in NS 0.9% 250 ml 200 ML IVPB ONE (11:07)
[2023-11-03 15:52] LABS: Urine Appearance Clear; Urine Bilirubin Negative (Negative); Urine Blood Negative (Negative); Urine Color Amber; Urine Glucose Negative (Negative); Urine Ketones Negative (Negative); Urine Nitrite Negative (Negative); Urine Protein Negative (Negative); Urine Specific Gravity 1.038 (1.002-1.030); Urine Urobilinogen Negative (Negative)
[2023-11-03 15:59] LABS: Urine Bacteria 1+ (Absent); Urine Red Blood Cell 1+(3-5/hpf) (Absent); Urine Squamous Epithelial Cell Present (Absent); Urine White Blood Cell 1+(6-10/hpf) (Absent)
[2023-11-03] MEDS ORDERED: Midazolam 10 mg/10 ml VIAL 1 mg/ml 10 ml VIAL (10 mg) IV SLOW PU SCH (16:00)
[2023-11-03 16:59] LABS: Hematocrit 34.9 % (38-53); Hemoglobin 11.4 g/dL (13.2-16.3)
[2023-11-03] MEDS: NS 0.9% 1000 ml BAG 1,000 ML IV ONE (17:13)
[2023-11-03] MEDS: Albumin Human 5% 12.5 GM/250 ML BTL IV ONE (17:14)
[2023-11-03] MEDS: Pantoprazole VIAL 40 MG VIAL IV SCH (20:49)
[2023-11-03] MEDS: Dexmedetomidine 1,000 MCG in NS 0.9% 250 ml 240 ML IV SCH (23:18)
[2023-11-03 23:58] LABS: Hematocrit 31.8 % (38-53); Hemoglobin 10.4 g/dL (13.2-16.3)
[2023-11-04 03:58] LABS: Calcium 8.5 mg/dL (8.6-10.3); Creatinine, Serum 0.51 mg/dL (0.67-1.17); Potassium 3.7 mmol/L (3.5-5.0); eGFR CKD-EPI 136.4 (>60)
[2023-11-04 04:21] LABS: ABS Eosinophils 0.1 10^3/uL (0.0-0.5); ABS Lymphocytes 1.9 10^3/uL (1.0-4.8); ABS Monocytes 0.7 10^3/uL (0.0-1.1); ABS Neutrophils 3.7 10^3/uL (1.5-7.6); Eosinophil % 2.3 %; Hematocrit 31.1 % (38-53); Hemoglobin 10.3 g/dL (13.2-16.3); Lymphocyte % 28.8 %; Mean Corpuscular Hemoglobin 27.3 pg (27-33); Mean Corpuscular Hgb Conc 33.3 g/dL (31-36); Platelet Count 297 10^3/uL (150-450); Red Blood Count 3.79 10^6/uL (4.06-5.63); Red Cell Distribution Width 15.2 % (12-17); White Blood Count 6.4 10^3/uL (3.6-10.2)
[2023-11-04] MEDS: Naloxone 4 mg VIAL 0.4 MG/ML 10 ml VIAL (4 mg) ONE (10:42)
[2023-11-04] MEDS: Naloxone 0.4 mg VIAL 0.4 mg/ml 1 ml VIAL ONE (10:42)
[2023-11-04] MEDS: Anidulafungin 100 MG in NS 0.9% 100 ml BAG 100 ML IVPB SCH (11:19)
[2023-11-04] MEDS: Naloxone 4 mg VIAL 0.4 MG/ML 10 ml VIAL (4 mg) IV ONE (11:40)
[2023-11-04] MEDS: Midazolam 2 mg/2 ml VIAL 1 mg/ml 2 ml VIAL (2 mg) IV SLOW PU ONE (11:40)
[2023-11-04] MEDS: Iohexol 350 (CONTRAST) 500 ML MDV IV ONE (13:38)
[2023-11-04] MEDS: Propofol 10 mg/ml 100 ML BTL 1,000 MG/100 ML BTL IV SCH (17:15)
[2023-11-04] MEDS: Iohexol 300 (CONTRAST) 10 ML SDV IV ONE (17:56)
[2023-11-04] MEDS: fentaNYL INFUSION 50 mcg/mL VL 2,500 MCG/50 ML VIAL IV SCH (19:29)
[2023-11-04] MEDS: Norepinephrine 4 MG/250mL D5W 4,000 MCG/250 ML BAG IV SCH (22:15)
[2023-11-04] MEDS: Dexmedetomidine 1,000 MCG in NS 0.9% 250 ml 240 ML IV SCH (23:06)
[2023-11-05 04:34] LABS: ABS Lymphocytes 1.7 10^3/uL (1.0-4.8); ABS Monocytes 1.3 10^3/uL (0.0-1.1); ABS Neutrophils 11.8 10^3/uL (1.5-7.6); ABS Nucleated RBC 0.01 10^3/ul; Eosinophil % 0.3 %; Hematocrit 37.4 % (38-53); Hemoglobin 12.1 g/dL (13.2-16.3); Lymphocyte % 11.3 %; Mean Corpuscular Hemoglobin 26.5 pg (27-33); Mean Corpuscular Hgb Conc 32.4 g/dL (31-36); Mean Corpuscular Volume 81.7 fL (80-97); Mean Platelet Volume 8.8 fL (7.5-11.2); Platelet Count 460 10^3/uL (150-450); Red Blood Count 4.58 10^6/uL (4.06-5.63); Red Cell Distribution Width 15.2 % (12-17); White Blood Count 14.9 10^3/uL (3.6-10.2)
[2023-11-05 04:51] LABS: Calcium 9.1 mg/dL (8.6-10.3); Creatinine, Serum 0.55 mg/dL (0.67-1.17); Potassium 4.5 mmol/L (3.5-5.0); eGFR CKD-EPI 133.4 (>60)
[2023-11-05] MEDS: cefTRIAXone 2 gm/50 mL D5W 2 GM/50 ML BAG IV SCH (16:06)
[2023-11-06 04:29] LABS: ABS Basophils 0.1 10^3/uL (0.0-0.1); ABS Eosinophils 0.1 10^3/uL (0.0-0.5); ABS Lymphocytes 2.3 10^3/uL (1.0-4.8); ABS Monocytes 1.3 10^3/uL (0.0-1.1); ABS Neutrophils 8.3 10^3/uL (1.5-7.6); Eosinophil % 0.9 %; Hematocrit 34.5 % (38-53); Hemoglobin 11.2 g/dL (13.2-16.3); Lymphocyte % 18.7 %; Mean Corpuscular Hemoglobin 26.7 pg (27-33); Mean Corpuscular Hgb Conc 32.6 g/dL (31-36); Mean Corpuscular Volume 81.9 fL (80-97); Mean Platelet Volume 8.9 fL (7.5-11.2); Platelet Count 463 10^3/uL (150-450); Red Blood Count 4.21 10^6/uL (4.06-5.63); Red Cell Distribution Width 15.1 % (12-17)
[2023-11-06 04:46] LABS: Albumin 3.1 g/dL (3.2-5.2); Albumin/Globulin Ratio 0.9 (1-3); Calcium 8.7 mg/dL (8.6-10.3); Creatinine, Serum 0.39 mg/dL (0.67-1.17); Globulin 3.5 g/dL (2-4); Potassium 3.4 mmol/L (3.5-5.0); Total Bilirubin 0.4 mg/dL (0.2-1.0); Total Protein 6.6 g/dL (6.4-8.9)
[2023-11-06 07:46] LABS: Magnesium 1.8 mg/dL (1.9-2.7)
[2023-11-06] MEDS: KCL 20 MEQ/100 ML IVPREMIX 20 MEQ/100 ML BAG IV SCH (07:56)
[2023-11-06] MEDS: Potassium Chloride LIQUID 20 MEQ/15 ML LIQUID PO ONE (08:58)
[2023-11-06] MEDS: Magnesium Sulfate 2 gm BAG 2 GM/50 ML BAG IVPB ONE (09:17)
[2023-11-06] MEDS ORDERED: Polyethylene Glycol 3350 17 GM PACKET PO PRN (09:27)
[2023-11-06] MEDS ORDERED: Senna TAB 8.6 mg TAB PO PRN (09:27)
[2023-11-06] MEDS: Gadoteridol (CONTRAST) 279.3 MG/ML 10 ML IV ONE (11:39)
[2023-11-06 17:37] LABS: Anaplasma phagocytophilum Negative (Negative); B. miyamotoi PCR, B Negative (Negative); Babesia divergens/MO-1 Negative (Negative); Babesia ducani Negative (Negative); Ehrlichia chaffeensis Negative (Negative); Ehrlichia ewingii/canis Negative (Negative); Ehrlichia muris eauclairensis Negative (Negative)
[2023-11-07 05:58] LABS: INR 1.41 (0.83-1.13)
[2023-11-07 05:59] LABS: Hemoglobin 10.9 g/dL (13.2-16.3); Mean Corpuscular Hgb Conc 33.1 g/dL (31-36); Mean Corpuscular Volume 81.6 fL (80-97); Mean Platelet Volume 8.8 fL (7.5-11.2); Platelet Count 367 10^3/uL (150-450); Red Blood Count 4.04 10^6/uL (4.06-5.63); White Blood Count 8.7 10^3/uL (3.6-10.2)
[2023-11-07 06:09] LABS: Calcium 8.1 mg/dL (8.6-10.3); Creatinine, Serum 0.39 mg/dL (0.67-1.17); Potassium 3.3 mmol/L (3.5-5.0)
[2023-11-07 07:54] LABS: Magnesium 1.8 mg/dL (1.9-2.7)
[2023-11-07] MEDS: KCL 20 MEQ/100 ML IVPREMIX 20 MEQ/100 ML BAG IV SCH (08:47)
[2023-11-07] MEDS: Magnesium Sulfate 2 gm BAG 2 GM/50 ML BAG IVPB ONE (08:51)
[2023-11-07 14:43] LABS: IgG Immunoblot Negative (Negative); IgM Immunoblot Negative (Negative)
[2023-11-07] MEDS ORDERED: Lidocaine 2% PF 5 ML VIAL ONE (15:32)
[2023-11-07] MEDS ORDERED: Propofol 10 MG/ML 20 ML BTL ONE (15:32)
[2023-11-07] MEDS ORDERED: Rocuronium 50 mg VIAL 10 mg/ml 5 ml VIAL (50 mg) ONE (15:33)
[2023-11-07] MEDS ORDERED: Midazolam 5 mg/5 ml VIAL 1 mg/ml 5 ml VIAL (5 mg) ONE (15:41)
[2023-11-07] MEDS ORDERED: fentaNYL 100 mcg/2 ml 50 MCG/ML VIAL ONE (15:42)
[2023-11-07] MEDS ORDERED: Lidocaine 1% w EPI 1:200,000 SDV 30 ML VIAL ONE (16:24)
[2023-11-08 04:49] LABS: ABS Basophils 0.1 10^3/uL (0.0-0.1); ABS Eosinophils 0.3 10^3/uL (0.0-0.5); ABS Lymphocytes 1.6 10^3/uL (1.0-4.8); ABS Monocytes 0.7 10^3/uL (0.0-1.1); ABS Nucleated RBC 0.01 10^3/ul; Eosinophil % 3.7 %; Hematocrit 31.5 % (38-53); Hemoglobin 10.5 g/dL (13.2-16.3); Lymphocyte % 18.9 %; Mean Corpuscular Hgb Conc 33.3 g/dL (31-36); Mean Corpuscular Volume 81.2 fL (80-97); Mean Platelet Volume 8.6 fL (7.5-11.2); Nucleated Red Blood Cells % 0.1 %/100WBC (0.0-0.8); Platelet Count 323 10^3/uL (150-450); Red Blood Count 3.88 10^6/uL (4.06-5.63); Red Cell Distribution Width 15.1 % (12-17); White Blood Count 8.7 10^3/uL (3.6-10.2)
[2023-11-08 05:04] LABS: Calcium 8.6 mg/dL (8.6-10.3); Creatinine, Serum 0.4 mg/dL (0.67-1.17); Potassium 3.8 mmol/L (3.5-5.0); eGFR CKD-EPI 146.8 (>60)
[2023-11-08] MEDS: Enoxaparin 40 MG/0.4 ML SYR SUBCUT SCH (09:46)
[2023-11-08] MEDS: fentaNYL INFUSION 50 mcg/mL VL 2,500 MCG/50 ML VIAL IV SCH (20:20)
[2023-11-09 04:25] LABS: Hematocrit 31.4 % (38-53); Hemoglobin 10.4 g/dL (13.2-16.3); Mean Corpuscular Hemoglobin 27.2 pg (27-33); Mean Corpuscular Hgb Conc 33.2 g/dL (31-36); Mean Corpuscular Volume 81.8 fL (80-97); Mean Platelet Volume 8.9 fL (7.5-11.2); Platelet Count 313 10^3/uL (150-450); Red Blood Count 3.84 10^6/uL (4.06-5.63); Red Cell Distribution Width 14.8 % (12-17); White Blood Count 8.1 10^3/uL (3.6-10.2)
[2023-11-09 04:43] LABS: Calcium 8.3 mg/dL (8.6-10.3); Creatinine, Serum 0.44 mg/dL (0.67-1.17); Potassium 3.9 mmol/L (3.5-5.0); eGFR CKD-EPI 142.7 (>60)
[2023-11-09] MEDS: ceFAZolin 2 GM in NS PREMIX 2 GM/100 ML BAG IVPB SCH (11:49)
[2023-11-09] MEDS: Propofol 10 mg/ml 100 ML BTL 1,000 MG/100 ML BTL IV SCH (19:45)
[2023-11-09] MEDS: fentaNYL INFUSION 50 mcg/mL VL 2,500 MCG/50 ML VIAL IV SCH (21:12)
[2023-11-10 04:48] LABS: ABS Basophils 0.1 10^3/uL (0.0-0.1); ABS Eosinophils 0.5 10^3/uL (0.0-0.5); ABS Lymphocytes 1.4 10^3/uL (1.0-4.8); ABS Monocytes 0.8 10^3/uL (0.0-1.1); ABS Neutrophils 8.7 10^3/uL (1.5-7.6); ABS Nucleated RBC 0.01 10^3/ul; Eosinophil % 4.6 %; Hematocrit 33.8 % (38-53); Lymphocyte % 12.5 %; Mean Corpuscular Hemoglobin 26.7 pg (27-33); Mean Corpuscular Hgb Conc 32.6 g/dL (31-36); Mean Corpuscular Volume 82.1 fL (80-97); Mean Platelet Volume 8.9 fL (7.5-11.2); Nucleated Red Blood Cells % 0.1 %/100WBC (0.0-0.8); Platelet Count 424 10^3/uL (150-450); Red Blood Count 4.12 10^6/uL (4.06-5.63); Red Cell Distribution Width 15.1 % (12-17); White Blood Count 11.6 10^3/uL (3.6-10.2)
[2023-11-10 05:05] LABS: Calcium 8.6 mg/dL (8.6-10.3); Creatinine, Serum 0.41 mg/dL (0.67-1.17); Potassium 3.9 mmol/L (3.5-5.0); eGFR CKD-EPI 145.7 (>60)
[2023-11-10] MEDS: Propofol 10 mg/ml 100 ML BTL 1,000 MG/100 ML BTL IV SCH ×2 (09:23→11:48)
[2023-11-10] MEDS: Dexmedetomidine 1,000 MCG in NS 0.9% 250 ml 240 ML IV SCH (09:24)
[2023-11-10] MEDS: Senna TAB 8.6 mg TAB NG TUBE SCH (09:47)
[2023-11-10] MEDS: Polyethylene Glycol 3350 17 GM PACKET NG TUBE SCH (09:47)
[2023-11-10 10:14] LABS: Creatine Kinase 17 U/L (10-223); Triglycerides 163 mg/dL
[2023-11-10] MEDS: fentaNYL INFUSION 50 mcg/mL VL 2,500 MCG/50 ML VIAL IV SCH (16:01)
[2023-11-10] MEDS: Norepinephrine 4 MG/250mL D5W 4,000 MCG/250 ML BAG IV SCH ×2 (20:49→22:08)
[2023-11-11 05:20] LABS: ABS Basophils 0.1 10^3/uL (0.0-0.1); ABS Eosinophils 0.5 10^3/uL (0.0-0.5); ABS Lymphocytes 1.4 10^3/uL (1.0-4.8); ABS Monocytes 0.8 10^3/uL (0.0-1.1); ABS Neutrophils 6.3 10^3/uL (1.5-7.6); ABS Nucleated RBC 0.01 10^3/ul; Eosinophil % 5.9 %; Hematocrit 32.5 % (38-53); Hemoglobin 10.7 g/dL (13.2-16.3); Lymphocyte % 15.4 %; Mean Corpuscular Hemoglobin 26.6 pg (27-33); Mean Corpuscular Hgb Conc 32.7 g/dL (31-36); Mean Corpuscular Volume 81.2 fL (80-97); Mean Platelet Volume 8.9 fL (7.5-11.2); Nucleated Red Blood Cells % 0.1 %/100WBC (0.0-0.8); Platelet Count 418 10^3/uL (150-450); Red Blood Count 4.01 10^6/uL (4.06-5.63); Red Cell Distribution Width 15.2 % (12-17); White Blood Count 9.2 10^3/uL (3.6-10.2)
[2023-11-11 05:36] LABS: Calcium 8.5 mg/dL (8.6-10.3); Creatinine, Serum 0.37 mg/dL (0.67-1.17); Magnesium 1.8 mg/dL (1.9-2.7); Potassium 3.9 mmol/L (3.5-5.0); eGFR CKD-EPI 150.3 (>60)
[2023-11-11] MEDS: Magnesium Sulfate 2 gm BAG 2 GM/50 ML BAG IVPB ONE (09:57)
[2023-11-11 11:19] LABS: C Reactive Protein 96.88 mg/L (<8.01)
[2023-11-11] MEDS: Metoclopramide 5 MG/ML VIAL (10 mg) IV PRN (16:06)
[2023-11-12 04:37] LABS: ABS Eosinophils 0.2 10^3/uL (0.0-0.5); ABS Lymphocytes 1.4 10^3/uL (1.0-4.8); ABS Monocytes 0.8 10^3/uL (0.0-1.1); ABS Neutrophils 5.9 10^3/uL (1.5-7.6); ABS Nucleated RBC 0.02 10^3/ul; Eosinophil % 2.3 %; Hematocrit 32.1 % (38-53); Hemoglobin 10.7 g/dL (13.2-16.3); Lymphocyte % 16.4 %; Mean Corpuscular Hemoglobin 26.9 pg (27-33); Mean Corpuscular Hgb Conc 33.2 g/dL (31-36); Mean Corpuscular Volume 81.1 fL (80-97); Mean Platelet Volume 8.7 fL (7.5-11.2); Nucleated Red Blood Cells % 0.2 %/100WBC (0.0-0.8); Platelet Count 424 10^3/uL (150-450); Red Blood Count 3.96 10^6/uL (4.06-5.63); Red Cell Distribution Width 14.9 % (12-17); White Blood Count 8.3 10^3/uL (3.6-10.2)
[2023-11-12 04:52] LABS: Creatinine, Serum 0.45 mg/dL (0.67-1.17); Potassium 3.8 mmol/L (3.5-5.0); eGFR CKD-EPI 141.7 (>60)
[2023-11-12] MEDS: Potassium Chloride LIQUID 20 MEQ/15 ML LIQUID NG TUBE ONE (09:24)
[2023-11-12] MEDS: oxyCODONE 5 mg/5 ml ORAL.SOLN UDC PO PRN (12:34)
[2023-11-13 09:34] LABS: Phosphorus 3.5 mg/dL (2.5-5.0)
[2023-11-13] MEDS: Midazolam 2 mg/2 ml VIAL 1 mg/ml 2 ml VIAL (2 mg) IV SLOW PU ONE (16:28)
[2023-11-14] MEDS: Dextran 70/Hypromellose Tears Eye Drops 15 ml BTL (for Artificials Tears) BOTH EYES PRN (05:29)
[2023-11-14 10:06] LABS: ABS Basophils 0.1 10^3/uL (0.0-0.1); ABS Eosinophils 0.1 10^3/uL (0.0-0.5); ABS Lymphocytes 1.5 10^3/uL (1.0-4.8); ABS Monocytes 0.9 10^3/uL (0.0-1.1); ABS Neutrophils 4.7 10^3/uL (1.5-7.6); Eosinophil % 1.5 %; Hematocrit 32.4 % (38-53); Hemoglobin 10.6 g/dL (13.2-16.3); Lymphocyte % 20.9 %; Mean Corpuscular Hemoglobin 26.9 pg (27-33); Mean Corpuscular Hgb Conc 32.8 g/dL (31-36); Mean Corpuscular Volume 81.9 fL (80-97); Mean Platelet Volume 8.4 fL (7.5-11.2); Platelet Count 468 10^3/uL (150-450); Red Blood Count 3.95 10^6/uL (4.06-5.63); Red Cell Distribution Width 14.6 % (12-17); White Blood Count 7.3 10^3/uL (3.6-10.2)
[2023-11-14 10:23] LABS: Calcium 9.3 mg/dL (8.6-10.3); Creatinine, Serum 0.44 mg/dL (0.67-1.17); Magnesium 1.8 mg/dL (1.9-2.7); eGFR CKD-EPI 142.7 (>60)
[2023-11-14] MEDS: Magnesium Sulfate 2 gm BAG 2 GM/50 ML BAG IVPB ONE (17:33)
[2023-11-15] MEDS ORDERED: Haloperidol 5 mg/ml SDV IV/IM 5 MG/ML AMP ONE (18:04)
[2023-11-15] MEDS: Lactulose 30 ml UDC NG TUBE ONE (23:41)
[2023-11-16 04:45] LABS: ABS Basophils 0.1 10^3/uL (0.0-0.1); ABS Eosinophils 0.2 10^3/uL (0.0-0.5); ABS Lymphocytes 1.7 10^3/uL (1.0-4.8); ABS Monocytes 0.9 10^3/uL (0.0-1.1); ABS Neutrophils 6.8 10^3/uL (1.5-7.6); Eosinophil % 2.5 %; Hematocrit 32.6 % (38-53); Hemoglobin 10.7 g/dL (13.2-16.3); Lymphocyte % 17.6 %; Mean Corpuscular Hemoglobin 26.9 pg (27-33); Mean Corpuscular Hgb Conc 32.8 g/dL (31-36); Mean Platelet Volume 8.3 fL (7.5-11.2); Platelet Count 495 10^3/uL (150-450); Red Blood Count 3.97 10^6/uL (4.06-5.63); Red Cell Distribution Width 14.7 % (12-17); White Blood Count 9.7 10^3/uL (3.6-10.2)
[2023-11-16 05:02] LABS: Calcium 9.1 mg/dL (8.6-10.3); Creatinine, Serum 0.41 mg/dL (0.67-1.17); Magnesium 1.7 mg/dL (1.9-2.7); Potassium 4.1 mmol/L (3.5-5.0); eGFR CKD-EPI 145.7 (>60)
[2023-11-16] MEDS: Magnesium Sulf 4 GM/100 ML IV 4,000 MG/100 ML BAG IVPB ONE (06:43)
[2023-11-16] MEDS ORDERED: Lorazepam PYXIS KEY PRN (19:27)
[2023-11-16] MEDS: LORazepam 2 mg VIAL 1 ml IV PUSH ONE (19:33)
[2023-11-16] MEDS: LORazepam 2 mg VIAL 1 ml ONE (19:41)
[2023-11-17 04:18] LABS: ABS Basophils 0.1 10^3/uL (0.0-0.1); ABS Eosinophils 0.3 10^3/uL (0.0-0.5); ABS Lymphocytes 1.6 10^3/uL (1.0-4.8); ABS Monocytes 0.8 10^3/uL (0.0-1.1); ABS Neutrophils 6.6 10^3/uL (1.5-7.6); ABS Nucleated RBC 0.01 10^3/ul; Eosinophil % 3.4 %; Hematocrit 33.2 % (38-53); Hemoglobin 11.1 g/dL (13.2-16.3); Mean Corpuscular Hemoglobin 27.3 pg (27-33); Mean Corpuscular Hgb Conc 33.3 g/dL (31-36); Mean Platelet Volume 8.2 fL (7.5-11.2); Nucleated Red Blood Cells % 0.1 %/100WBC (0.0-0.8); Platelet Count 500 10^3/uL (150-450); Red Blood Count 4.05 10^6/uL (4.06-5.63); White Blood Count 9.4 10^3/uL (3.6-10.2)
[2023-11-17 04:35] LABS: Calcium 9.3 mg/dL (8.6-10.3); Creatinine, Serum 0.44 mg/dL (0.67-1.17); Magnesium 1.8 mg/dL (1.9-2.7); Potassium 4.3 mmol/L (3.5-5.0); eGFR CKD-EPI 142.7 (>60)
[2023-11-17] MEDS: Magnesium Sulfate IV 1GM/100ML 1 GM/100 ML BAG IV ONE (05:29)
[2023-11-17] MEDS ORDERED: KETAMINE HCL 10 MG/ML 20 ml VIAL (200 MG) ONE ×2 (08:20→08:50)
[2023-11-17] MEDS ORDERED: Propofol 10 MG/ML 50 ML BTL ONE (12:00)
[2023-11-17] MEDS: Lactulose 30 ml UDC NG TUBE ONE (21:46)
[2023-11-18 04:25] LABS: ABS Basophils 0.1 10^3/uL (0.0-0.1); ABS Eosinophils 0.2 10^3/uL (0.0-0.5); ABS Lymphocytes 1.7 10^3/uL (1.0-4.8); ABS Monocytes 1.1 10^3/uL (0.0-1.1); ABS Neutrophils 9.9 10^3/uL (1.5-7.6); ABS Nucleated RBC 0.01 10^3/ul; Eosinophil % 1.4 %; Hematocrit 32.3 % (38-53); Hemoglobin 10.6 g/dL (13.2-16.3); Mean Corpuscular Hemoglobin 26.8 pg (27-33); Mean Corpuscular Hgb Conc 32.7 g/dL (31-36); Mean Platelet Volume 8.1 fL (7.5-11.2); Nucleated Red Blood Cells % 0.1 %/100WBC (0.0-0.8); Platelet Count 495 10^3/uL (150-450); Red Blood Count 3.94 10^6/uL (4.06-5.63); Red Cell Distribution Width 14.9 % (12-17); White Blood Count 12.9 10^3/uL (3.6-10.2)
[2023-11-18 05:11] LABS: Calcium 9.4 mg/dL (8.6-10.3); Magnesium 1.7 mg/dL (1.9-2.7); Potassium 4.4 mmol/L (3.5-5.0)
[2023-11-18 05:36] LABS: Creatinine, Serum 0.5 mg/dL (0.67-1.17); eGFR CKD-EPI 137.3 (>60)
[2023-11-18] MEDS: Magnesium Sulfate 2 gm BAG 2 GM/50 ML BAG IVPB ONE ×2 (05:51→17:28)
[2023-11-18 09:34] LABS: Osmolality Serum 286 mOsm/kg (275-295)
[2023-11-18] MEDS: oxyCODONE 5 mg/5 ml ORAL.SOLN UDC PO PRN (18:06)
[2023-11-18 22:29] LABS: Urine Osmo 372 mOsm/kg (150-1150)
[2023-11-19 04:36] LABS: ABS Basophils 0.1 10^3/uL (0.0-0.1); ABS Eosinophils 0.2 10^3/uL (0.0-0.5); ABS Lymphocytes 1.3 10^3/uL (1.0-4.8); ABS Neutrophils 6.4 10^3/uL (1.5-7.6); Eosinophil % 2.7 %; Hematocrit 32.2 % (38-53); Hemoglobin 10.6 g/dL (13.2-16.3); Mean Corpuscular Hemoglobin 27.2 pg (27-33); Mean Corpuscular Volume 82.2 fL (80-97); Mean Platelet Volume 8.4 fL (7.5-11.2); Platelet Count 445 10^3/uL (150-450); Red Blood Count 3.92 10^6/uL (4.06-5.63); Red Cell Distribution Width 15.1 % (12-17)
[2023-11-19 05:13] LABS: C Reactive Protein 15.08 mg/L (<8.01); Creatinine, Serum 0.4 mg/dL (0.67-1.17); Magnesium 1.8 mg/dL (1.9-2.7); Potassium 4.3 mmol/L (3.5-5.0); eGFR CKD-EPI 146.8 (>60)
[2023-11-19] MEDS ORDERED: cefTRIAXone 1 gm/50 mL D5W 1 GM/50 ML BAG IV SCH (06:00)
[2023-11-19] MEDS: Magnesium Sulfate 2 gm BAG 2 GM/50 ML BAG IVPB ONE (06:22)
[2023-11-19] MEDS: Lactulose 30 ml UDC NG TUBE PRN (13:23)
[2023-11-20 04:18] LABS: Venous Bicarbonate HCO3 32.8 mmol/L (24-28)
[2023-11-20 15:29] LABS: Hepatitis C Genotype 1a (Undetected)
[2023-11-21 03:38] LABS: Calcium 9.2 mg/dL (8.6-10.3); Creatinine, Serum 0.42 mg/dL (0.67-1.17); Magnesium 1.8 mg/dL (1.9-2.7); eGFR CKD-EPI 144.7 (>60)
[2023-11-21 03:48] LABS: ABS Eosinophils 0.3 10^3/uL (0.0-0.5); ABS Monocytes 0.7 10^3/uL (0.0-1.1); ABS Neutrophils 5.3 10^3/uL (1.5-7.6); Eosinophil % 3.6 %; Hematocrit 30.3 % (38-53); Hemoglobin 10.1 g/dL (13.2-16.3); Lymphocyte % 24.1 %; Mean Corpuscular Hemoglobin 27.8 pg (27-33); Mean Corpuscular Hgb Conc 33.4 g/dL (31-36); Mean Corpuscular Volume 83.2 fL (80-97); Mean Platelet Volume 8.9 fL (7.5-11.2); Platelet Count 375 10^3/uL (150-450); Red Blood Count 3.65 10^6/uL (4.06-5.63); Red Cell Distribution Width 15.1 % (12-17); White Blood Count 8.3 10^3/uL (3.6-10.2)
[2023-11-21] MEDS: Magnesium Sulfate 2 gm BAG 2 GM/50 ML BAG IVPB ONE ×2 (09:19→19:59)
[2023-11-21] MEDS: Dextran 70/Hypromellose Tears Eye Drops 15 ml BTL (for Artificials Tears) BOTH EYES PRN (20:00)
[2023-11-23 04:08] LABS: ABS Eosinophils 0.2 10^3/uL (0.0-0.5); ABS Lymphocytes 1.6 10^3/uL (1.0-4.8); ABS Neutrophils 6.9 10^3/uL (1.5-7.6); Eosinophil % 2.4 %; Hemoglobin 10.2 g/dL (13.2-16.3); Lymphocyte % 16.5 %; Mean Corpuscular Hemoglobin 27.3 pg (27-33); Mean Corpuscular Hgb Conc 32.9 g/dL (31-36); Mean Platelet Volume 8.7 fL (7.5-11.2); Platelet Count 323 10^3/uL (150-450); Red Blood Count 3.74 10^6/uL (4.06-5.63); Red Cell Distribution Width 15.5 % (12-17); White Blood Count 9.8 10^3/uL (3.6-10.2)
[2023-11-23 04:25] LABS: Calcium 9.4 mg/dL (8.6-10.3); Creatinine, Serum 0.34 mg/dL (0.67-1.17); Magnesium 1.7 mg/dL (1.9-2.7); Potassium 4.3 mmol/L (3.5-5.0); eGFR CKD-EPI 154.2 (>60)
[2023-11-23] MEDS: Magnesium Sulfate 2 gm BAG 2 GM/50 ML BAG IVPB ONE (13:43)
[2023-11-23] MEDS: ceFAZolin 2 GM PREMIX 2 GM/50 ML BAG IV SCH (18:11)
[2023-11-24] MEDS: Magnesium Sulfate 2 gm BAG 2 GM/50 ML BAG IVPB ONE (13:54)
[2023-11-24] MEDS: Sodium Phosphate ADULT ENEMA 133 ML BTL PR ONE (22:18)
[2023-11-24] MEDS ORDERED: Lorazepam PYXIS KEY PRN (22:22)
[2023-11-24] MEDS: LORazepam 2 mg VIAL 1 ml IV PUSH ONE (22:28)
[2023-11-24] MEDS: LORazepam 2 mg VIAL 1 ml ONE (22:42)
[2023-11-24] MEDS: Morphine 4 MG/ML VIAL (1 ml) ONE (22:45)
[2023-11-24] MEDS: Mineral Oil ENEMA 118 ML/BOTTLE BOTTLE PR ONE (23:11)
[2023-11-25 05:07] LABS: ABS Basophils 0.1 10^3/uL (0.0-0.1); ABS Eosinophils 0.1 10^3/uL (0.0-0.5); ABS Lymphocytes 1.3 10^3/uL (1.0-4.8); ABS Monocytes 1.1 10^3/uL (0.0-1.1); ABS Neutrophils 11.5 10^3/uL (1.5-7.6); ABS Nucleated RBC 0.01 10^3/ul; Eosinophil % 1.1 %; Hematocrit 35.6 % (38-53); Hemoglobin 11.8 g/dL (13.2-16.3); Lymphocyte % 9.4 %; Mean Corpuscular Hemoglobin 27.1 pg (27-33); Mean Platelet Volume 8.7 fL (7.5-11.2); Nucleated Red Blood Cells % 0.1 %/100WBC (0.0-0.8); Platelet Count 361 10^3/uL (150-450); Red Blood Count 4.35 10^6/uL (4.06-5.63); Red Cell Distribution Width 15.2 % (12-17); White Blood Count 14.1 10^3/uL (3.6-10.2)
[2023-11-25 05:24] LABS: Albumin 4.1 g/dL (3.2-5.2); Albumin/Globulin Ratio 1.2 (1-3); Calcium 10.1 mg/dL (8.6-10.3); Creatinine, Serum 0.39 mg/dL (0.67-1.17); Globulin 3.5 g/dL (2-4); Magnesium 1.9 mg/dL (1.9-2.7); Total Bilirubin 0.6 mg/dL (0.2-1.0); Total Protein 7.6 g/dL (6.4-8.9)
[2023-11-25] MEDS: Magnesium Sulfate 2 gm BAG 2 GM/50 ML BAG IVPB ONE (06:10)
[2023-11-25 06:39] LABS: Phosphorus 3.8 mg/dL (2.5-5.0)
[2023-11-25] MEDS ORDERED: Lorazepam PYXIS KEY PRN (10:47)
[2023-11-25] MEDS: LORazepam 2 mg VIAL 1 ml IV PUSH PRN (11:05)
[2023-11-25] MEDS: Senna TAB 8.6 mg TAB NG TUBE SCH (12:15)
[2023-11-25] MEDS: Lactulose 30 ml UDC NG TUBE SCH (12:15)
[2023-11-26 00:04] LABS: Resp Rate 12
[2023-11-26 00:11] LABS: PCO2 Arterial 53 mmHg (35-45); PO2 Arterial 138 mmHg (80-100)
[2023-11-26 04:31] LABS: Albumin 3.9 g/dL (3.2-5.2); Albumin/Globulin Ratio 1.1 (1-3); Creatinine, Serum 0.42 mg/dL (0.67-1.17); Globulin 3.4 g/dL (2-4); Potassium 4.1 mmol/L (3.5-5.0); Total Bilirubin 0.5 mg/dL (0.2-1.0); Total Protein 7.3 g/dL (6.4-8.9); eGFR CKD-EPI 144.7 (>60)
[2023-11-26 06:23] LABS: Magnesium 1.8 mg/dL (1.9-2.7)
[2023-11-26 06:25] LABS: ABS Eosinophils 0.2 10^3/uL (0.0-0.5); ABS Lymphocytes 1.6 10^3/uL (1.0-4.8); ABS Monocytes 0.9 10^3/uL (0.0-1.1); ABS Neutrophils 4.6 10^3/uL (1.5-7.6); ABS Nucleated RBC 0.01 10^3/ul; Eosinophil % 3.1 %; Hematocrit 34.6 % (38-53); Hemoglobin 11.5 g/dL (13.2-16.3); Lymphocyte % 21.9 %; Mean Corpuscular Hemoglobin 27.7 pg (27-33); Mean Corpuscular Hgb Conc 33.1 g/dL (31-36); Mean Corpuscular Volume 83.5 fL (80-97); Mean Platelet Volume 9.2 fL (7.5-11.2); Nucleated Red Blood Cells % 0.1 %/100WBC (0.0-0.8); Platelet Count 332 10^3/uL (150-450); Red Blood Count 4.14 10^6/uL (4.06-5.63); Red Cell Distribution Width 15.6 % (12-17); White Blood Count 7.3 10^3/uL (3.6-10.2)
[2023-11-26] MEDS: Magnesium Sulfate 2 gm BAG 2 GM/50 ML BAG IVPB ONE (08:07)
[2023-11-26 09:04] LABS: C Reactive Protein 10.97 mg/L (<8.01)
[2023-11-26] MEDS: CMCS:Methylnaltrexone SQ (NF) 12 MG/0.6 ML VIAL SUBCUT ONE (18:25)
[2023-11-27 04:48] LABS: ABS Eosinophils 0.1 10^3/uL (0.0-0.5); ABS Lymphocytes 1.6 10^3/uL (1.0-4.8); ABS Monocytes 0.7 10^3/uL (0.0-1.1); ABS Neutrophils 3.6 10^3/uL (1.5-7.6); ABS Nucleated RBC 0.01 10^3/ul; Hematocrit 33.8 % (38-53); Hemoglobin 11.1 g/dL (13.2-16.3); Lymphocyte % 26.3 %; Mean Corpuscular Hemoglobin 27.4 pg (27-33); Mean Platelet Volume 8.7 fL (7.5-11.2); Nucleated Red Blood Cells % 0.1 %/100WBC (0.0-0.8); Platelet Count 308 10^3/uL (150-450); Red Blood Count 4.07 10^6/uL (4.06-5.63); Red Cell Distribution Width 15.4 % (12-17)
[2023-11-27 05:05] LABS: Albumin 3.9 g/dL (3.2-5.2); Albumin/Globulin Ratio 1.2 (1-3); Calcium 9.7 mg/dL (8.6-10.3); Creatinine, Serum 0.44 mg/dL (0.67-1.17); Globulin 3.2 g/dL (2-4); Magnesium 1.8 mg/dL (1.9-2.7); Potassium 4.1 mmol/L (3.5-5.0); Total Bilirubin 0.4 mg/dL (0.2-1.0); Total Protein 7.1 g/dL (6.4-8.9); eGFR CKD-EPI 142.7 (>60)
[2023-11-27] MEDS: Magnesium Sulf 4 GM/100 ML IV 4,000 MG/100 ML BAG IVPB ONE (07:21)
[2023-11-27] MEDS ORDERED: Magnesium Sulfate 2 gm BAG 2 GM/50 ML BAG IVPB ONE (07:54)
[2023-11-28 04:29] LABS: Albumin 3.7 g/dL (3.2-5.2); Albumin/Globulin Ratio 1.2 (1-3); Calcium 9.6 mg/dL (8.6-10.3); Creatinine, Serum 0.45 mg/dL (0.67-1.17); Potassium 4.1 mmol/L (3.5-5.0); Total Bilirubin 0.3 mg/dL (0.2-1.0); Total Protein 6.7 g/dL (6.4-8.9); eGFR CKD-EPI 141.7 (>60)
[2023-11-28 04:46] LABS: ABS Eosinophils 0.2 10^3/uL (0.0-0.5); ABS Lymphocytes 1.6 10^3/uL (1.0-4.8); ABS Monocytes 0.6 10^3/uL (0.0-1.1); ABS Neutrophils 3.2 10^3/uL (1.5-7.6); ABS Nucleated RBC 0.01 10^3/ul; Eosinophil % 3.1 %; Hematocrit 31.5 % (38-53); Hemoglobin 10.3 g/dL (13.2-16.3); Lymphocyte % 29.2 %; Mean Corpuscular Hemoglobin 27.4 pg (27-33); Mean Corpuscular Hgb Conc 32.8 g/dL (31-36); Mean Corpuscular Volume 83.5 fL (80-97); Mean Platelet Volume 9.2 fL (7.5-11.2); Nucleated Red Blood Cells % 0.1 %/100WBC (0.0-0.8); Platelet Count 262 10^3/uL (150-450); Red Blood Count 3.77 10^6/uL (4.06-5.63); Red Cell Distribution Width 15.8 % (12-17); White Blood Count 5.6 10^3/uL (3.6-10.2)
[2023-11-28 04:55] LABS: Magnesium 1.9 mg/dL (1.9-2.7)
[2023-11-29 05:05] LABS: ABS Eosinophils 0.2 10^3/uL (0.0-0.5); ABS Lymphocytes 1.6 10^3/uL (1.0-4.8); ABS Monocytes 0.6 10^3/uL (0.0-1.1); ABS Neutrophils 2.3 10^3/uL (1.5-7.6); ABS Nucleated RBC 0.01 10^3/ul; Eosinophil % 4.1 %; Hematocrit 31.7 % (38-53); Hemoglobin 10.6 g/dL (13.2-16.3); Lymphocyte % 34.4 %; Mean Corpuscular Hemoglobin 27.8 pg (27-33); Mean Corpuscular Hgb Conc 33.4 g/dL (31-36); Mean Corpuscular Volume 83.2 fL (80-97); Mean Platelet Volume 8.6 fL (7.5-11.2); Nucleated Red Blood Cells % 0.2 %/100WBC (0.0-0.8); Platelet Count 246 10^3/uL (150-450); Red Cell Distribution Width 15.8 % (12-17); White Blood Count 4.6 10^3/uL (3.6-10.2)
[2023-11-29] MEDS: Magnesium Sulfate 2 gm BAG 2 GM/50 ML BAG IVPB ONE (08:11)
[2023-11-30 04:49] LABS: ABS Eosinophils 0.2 10^3/uL (0.0-0.5); ABS Lymphocytes 1.3 10^3/uL (1.0-4.8); ABS Monocytes 0.6 10^3/uL (0.0-1.1); ABS Nucleated RBC 0.01 10^3/ul; Hematocrit 34.8 % (38-53); Hemoglobin 11.5 g/dL (13.2-16.3); Lymphocyte % 26.1 %; Mean Corpuscular Hemoglobin 27.7 pg (27-33); Mean Platelet Volume 8.6 fL (7.5-11.2); Nucleated Red Blood Cells % 0.3 %/100WBC (0.0-0.8); Platelet Count 259 10^3/uL (150-450); Red Blood Count 4.14 10^6/uL (4.06-5.63); Red Cell Distribution Width 15.8 % (12-17); White Blood Count 5.1 10^3/uL (3.6-10.2)
[2023-11-30 05:06] LABS: Calcium 9.8 mg/dL (8.6-10.3); Creatinine, Serum 0.45 mg/dL (0.67-1.17); Potassium 4.3 mmol/L (3.5-5.0); eGFR CKD-EPI 141.7 (>60)
[2023-11-30] MEDS ORDERED: Polyethylene Glycol 3350 17 GM PACKET NG TUBE PRN (18:02)
[2023-11-30] MEDS: Pantoprazole VIAL 40 MG VIAL IV ONE (19:39)
[2023-11-30] MEDS: Ondansetron 4 mg VIAL 2 MG/ML 2 ml VIAL IV ONE (19:39)
[2023-12-02 04:14] LABS: Calcium 9.7 mg/dL (8.6-10.3); Creatinine, Serum 0.49 mg/dL (0.67-1.17); Potassium 3.9 mmol/L (3.5-5.0); eGFR CKD-EPI 138.1 (>60)
[2023-12-03 06:16] LABS: ABS Eosinophils 0.1 10^3/uL (0.0-0.5); ABS Lymphocytes 1.5 10^3/uL (1.0-4.8); ABS Monocytes 0.7 10^3/uL (0.0-1.1); ABS Neutrophils 3.4 10^3/uL (1.5-7.6); Eosinophil % 2.4 %; Hemoglobin 11.8 g/dL (13.2-16.3); Lymphocyte % 26.8 %; Mean Corpuscular Hemoglobin 27.5 pg (27-33); Mean Corpuscular Hgb Conc 32.7 g/dL (31-36); Mean Corpuscular Volume 84.2 fL (80-97); Mean Platelet Volume 8.9 fL (7.5-11.2); Platelet Count 228 10^3/uL (150-450); Red Blood Count 4.28 10^6/uL (4.06-5.63); Red Cell Distribution Width 16.1 % (12-17); White Blood Count 5.8 10^3/uL (3.6-10.2)
[2023-12-03 06:32] LABS: Anion Gap 5 mmol/L (2-16); Blood Urea Nitrogen 12 mg/dL (6-24); C Reactive Protein < 1.00 mg/L (<8.01); CO2 Carbon Dioxide 38 mmol/L (22-32); Calcium 9.9 mg/dL (8.6-10.3); Chloride 93 mmol/L (101-111); Creatinine, Serum 0.38 mg/dL (0.67-1.17); Glucose 99 mg/dL (70-100); Sodium 136 mmol/L (135-145); eGFR CKD-EPI 149.1 (>60)
[2023-12-03 13:59] VITALS: BP 142/108
== END 2023-12-03 14:40 | DRG 4 ==
LOC: ED 14:14 → EDHOLD 14:14 → SUATTDRO 18:19 → MED 10-27 03:31 → ICU 10-28 09:51 → SUATTDRO 10-28 12:09 → ICU 11-05 11:30 → SSU 12-02 12:22
PROVIDERS: ADMIT Student in an Organized Health Care Education/Training Program; ATTEND Internal Medicine
PROC: O.CATEE (2023-11-17 09:30)

== ENCOUNTER 2024-01-19 08:10 | Inpatient (IN) ==
[2024-01-19] MEDS ORDERED: Norepinephrine 4 MG/250mL D5W 4,000 MCG/250 ML BAG IV ONE (08:15)
[2024-01-19] MEDS: Norepinephrine 4 MG/250mL D5W 4,000 MCG/250 ML BAG IV SCH ×2 (08:18→17:00)
[2024-01-19 08:52] LABS: Hematocrit 33.3 % (38-53); Hemoglobin 10.3 g/dL (13.2-16.3); Mean Corpuscular Hemoglobin 28.9 pg (27-33); Mean Corpuscular Hgb Conc 30.9 g/dL (31-36); Mean Corpuscular Volume 93.5 fL (80-97); Platelet Count 333 10^3/uL (150-450); Red Blood Count 3.56 10^6/uL (4.06-5.63); Red Cell Distribution Width 15.4 % (12-17); White Blood Count 9.7 10^3/uL (3.6-10.2)
[2024-01-19 08:55] LABS: INR 1.3 (0.83-1.13)
[2024-01-19 08:58] LABS: PO2 Arterial 232 mmHg (80-100)
[2024-01-19 09:04] LABS: PCO2 Arterial 72 mmHg (35-45)
[2024-01-19 09:17] LABS: High Sens Troponin Baseline 809 pg/mL (<20)
[2024-01-19 09:32] LABS: ABS Lymphocytes 1.7 10^3/uL (1.0-4.8); ABS Monocytes 0.8 10^3/uL (0.0-1.1); ABS Neutrophils 7.2 10^3/uL (1.5-7.6); ABS Nucleated RBC 0.02 10^3/ul; Eosinophil % 0.2 %; Lymphocyte % 17.6 %; Nucleated Red Blood Cells % 0.2 %/100WBC (0.0-0.8)
[2024-01-19 09:46] LABS: ALT 51 U/L (7-52); Acetaminophen < 15 mcg/mL; Albumin 3.1 g/dL (3.2-5.2); Albumin/Globulin Ratio 1.6 (1-3); Alcohol, S < 13 mg/dL (<13); Alkaline Phosphatase 60 U/L (35-149); Anion Gap 16 mmol/L (2-16); Blood Urea Nitrogen 17 mg/dL (6-24); CO2 Carbon Dioxide 23 mmol/L (22-32); Calcium 9.2 mg/dL (8.6-10.3); Chloride 95 mmol/L (101-111); Glucose 418 mg/dL (70-100); Lipase 31 U/L (11.0-82.0); Magnesium 2.8 mg/dL (1.9-2.7); Sodium 134 mmol/L (135-145); Total Bilirubin 0.3 mg/dL (0.2-1.0); Total Protein 5.1 g/dL (6.4-8.9); eGFR CKD-EPI 114.9 (>60)
[2024-01-19 09:58] LABS: Urine Appearance Turbid; Urine Bilirubin Negative (Negative); Urine Blood 3+ (Negative); Urine Color Light-Yellow; Urine Glucose 3+ (>=300 mg/dL) (Negative); Urine Ketones Negative (Negative); Urine Nitrite Negative (Negative); Urine Protein 1+ (>=30 mg/dL) (Negative); Urine Specific Gravity 1.008 (1.002-1.030); Urine Urobilinogen Negative (Negative)
[2024-01-19 10:02] LABS: Urine Bacteria 1+ /HPF (Absent); Urine Red Blood Cell 2+(6-10/hpf) /HPF (0-Trace); Urine Sperm Present /HPF (Absent); Urine Squamous Epithelial Cell Present /HPF (Absent); Urine White Blood Cell Trace(0-5/hpf) /HPF (0-Trace)
[2024-01-19 10:12] LABS: Urine Benzodiazepine Screen None Detected (None Detect); Urine Cannabinoids Screen None Detected (None Detect); Urine Opiates Screen Presumptive Positive (None Detect)
[2024-01-19] MEDS: NS 0.9% 1000 ml BAG 1,000 ML IV ONE (10:30)
[2024-01-19] MEDS ORDERED: Lorazepam PYXIS KEY PRN (10:36)
[2024-01-19] MEDS ORDERED: diazePAM INJ CARPUJECT 5 MG/ML SYRINGE ONE (10:41)
[2024-01-19] MEDS: diazePAM INJ CARPUJECT 5 MG/ML SYRINGE IV ONE (10:43)
[2024-01-19] MEDS: cefTRIAXone 2 GM ADDV.VIAL 2 GM in NS 0.9% 100 ml BAG 100 ML IV ONE (10:57)
[2024-01-19] MEDS: Sodium Chloride 3% HYPERTONIC 180 ML IV ONE (10:58)
[2024-01-19 11:07] LABS: Phosphorus 7.9 mg/dL (2.5-5.0); Potassium Redraw 4.5 mmol/L (3.5-5.0)
[2024-01-19] MEDS: LORazepam 2 mg VIAL 1 ml IV PUSH ONE (13:01)
[2024-01-19] MEDS: fentaNYL 100 mcg/2 ml 50 MCG/ML VIAL IV SLOW PU ONE (13:21)
[2024-01-19] MEDS: fentaNYL INFUSION 50 mcg/mL VL 2,500 MCG/50 ML VIAL IV SCH ×2 (13:29→15:25)
[2024-01-19 13:59] LABS: PCO2 Arterial 55 mmHg (35-45); PO2 Arterial 66 mmHg (80-100)
[2024-01-19] MEDS ORDERED: Propofol 10 mg/ml 100 ML BTL 1,000 MG/100 ML BTL IV SCH (15:00)
[2024-01-19] MEDS: Chlorhexidine MOUTHWASH 0.12% 15 ML UDC TOPICAL SCH (15:21)
[2024-01-19] MEDS: Propofol 10 mg/ml 100 ML BTL 1,000 MG/100 ML BTL ONE (15:24)
[2024-01-19] MEDS: Enoxaparin 40 MG/0.4 ML SYR SUBCUT SCH ×2 (15:45→20:16)
[2024-01-19] MEDS ORDERED: SODIUM CHLORIDE 4 MEQ/ML IV ONE (15:51)
[2024-01-19] MEDS: SODIUM CHLORIDE 4 MEQ/ML IV ONE (16:02)
[2024-01-19] MEDS ORDERED: Zosyn per Pharmacy NOTE FOLLOW UP SCH (17:00)
[2024-01-19] MEDS ORDERED: Vancomycin per Pharmacy 1 EA NOTE FOLLOW UP SCH (17:00)
[2024-01-19] MEDS: Pantoprazole VIAL 40 MG VIAL IV SCH (17:00)
[2024-01-19] MEDS: Piperacillin/Tazobac 3.375 BAG 3.375 GM/100 ML BAG IV ONE (17:16)
[2024-01-19] MEDS: Vancomycin 1,000 MG in NS 0.9% 250 ml 250 ML IVPB ONE (17:51)
[2024-01-19 19:39] LABS: Calcium 8.6 mg/dL (8.6-10.3); Creatinine, Serum 0.41 mg/dL (0.67-1.17); Potassium 4.5 mmol/L (3.5-5.0); eGFR CKD-EPI 145.7 (>60)
[2024-01-19 20:43] LABS: Venous Bicarbonate HCO3 26.2 mmol/L (24-28)
[2024-01-19 20:47] LABS: PCO2 Arterial 49 mmHg (35-45); PO2 Arterial 122 mmHg (80-100)
[2024-01-19 21:00] LABS: Glucose 185 mg/dL (70-100); Sodium 143 mmol/L (135-145)
[2024-01-19] MEDS: ZOSYN 3.375 GM Q8H per EXTENDED INFUSION IV SCH (21:02)
[2024-01-19] MEDS: Lactated Ringers 1000 ml BAG 1,000 ML IV SCH (21:11)
[2024-01-19] MEDS: Sodium Chloride 3% HYPERTONIC 180 ML IV SCH (21:53)
[2024-01-20 01:46] LABS: PCO2 Arterial 52 mmHg (35-45); PO2 Arterial 119 mmHg (80-100)
[2024-01-20 02:29] LABS: Calcium 8.8 mg/dL (8.6-10.3); Creatinine, Serum 0.51 mg/dL (0.67-1.17); eGFR CKD-EPI 136.4 (>60)
[2024-01-20] MEDS: Vancomycin 1000 MG in NS 0.9% 250 ML IVPB SCH (03:26)
[2024-01-20 04:28] LABS: ABS Lymphocytes 0.6 10^3/uL (1.0-4.8); ABS Monocytes 1.1 10^3/uL (0.0-1.1); ABS Neutrophils 15.2 10^3/uL (1.5-7.6); Hematocrit 42.6 % (38-53); Hemoglobin 13.7 g/dL (13.2-16.3); Lymphocyte % 3.6 %; Mean Corpuscular Hgb Conc 32.1 g/dL (31-36); Mean Corpuscular Volume 87.2 fL (80-97); Mean Platelet Volume 8.5 fL (7.5-11.2); Platelet Count 331 10^3/uL (150-450); Red Blood Count 4.89 10^6/uL (4.06-5.63); Red Cell Distribution Width 15.5 % (12-17); White Blood Count 16.9 10^3/uL (3.6-10.2)
[2024-01-20 04:43] VITALS: BP 113/73
[2024-01-20 05:06] LABS: Albumin 3.4 g/dL (3.2-5.2); Albumin/Globulin Ratio 1.4 (1-3); Calcium 8.9 mg/dL (8.6-10.3); Creatinine, Serum 0.54 mg/dL (0.67-1.17); Globulin 2.4 g/dL (2-4); Magnesium 2.4 mg/dL (1.9-2.7); Potassium 4.9 mmol/L (3.5-5.0); Total Bilirubin 0.4 mg/dL (0.2-1.0); Total Protein 5.8 g/dL (6.4-8.9); eGFR CKD-EPI 134.1 (>60)
[2024-01-20] MEDS: PHENYLEPHRINE DRIP IVPREMIX 50 MG/250 ML BAG IV SCH (05:12)
[2024-01-20] MEDS: [UNRECOGNIZED DRUG - OTHER] IV SCH (05:42)
[2024-01-20 10:07] LABS: PCO2 Arterial 52 mmHg (35-45); PO2 Arterial 131 mmHg (80-100)
[2024-01-20] MEDS ORDERED: Artificial Tear OPHTH.OINT 3.5 GM BOTH EYES PRN (15:36)
[2024-01-20] MEDS: Lactated Ringers 1000 ml BAG 1,000 ML IV ONE (17:23)
[2024-01-20] MEDS: Lactated Ringers 1000 ml BAG 1,000 ML IV SCH (21:30)
[2024-01-21 02:44] LABS: PCO2 Arterial 41 mmHg (35-45); PO2 Arterial 163 mmHg (80-100)
[2024-01-21 03:25] LABS: Calcium 8.5 mg/dL (8.6-10.3); Creatinine, Serum 1.77 mg/dL (0.67-1.17); Potassium 4.1 mmol/L (3.5-5.0)
[2024-01-21] MEDS: NS 0.45% 1000 ml BAG 1,000 ML IV SCH (03:48)
[2024-01-21 06:28] LABS: PCO2 Arterial 53 mmHg (35-45); PO2 Arterial 99 mmHg (80-100)
[2024-01-21 06:42] LABS: ABS Basophils 0.1 10^3/uL (0.0-0.1); ABS Eosinophils 0.2 10^3/uL (0.0-0.5); ABS Lymphocytes 2.4 10^3/uL (1.0-4.8); ABS Monocytes 1.2 10^3/uL (0.0-1.1); ABS Neutrophils 13.6 10^3/uL (1.5-7.6); ABS Nucleated RBC 0.01 10^3/ul; Eosinophil % 1.2 %; Hematocrit 34.1 % (38-53); Hemoglobin 10.9 g/dL (13.2-16.3); Lymphocyte % 13.8 %; Mean Corpuscular Hemoglobin 27.9 pg (27-33); Mean Corpuscular Hgb Conc 31.9 g/dL (31-36); Mean Corpuscular Volume 87.3 fL (80-97); Mean Platelet Volume 8.5 fL (7.5-11.2); Nucleated Red Blood Cells % 0.1 %/100WBC (0.0-0.8); Platelet Count 297 10^3/uL (150-450); Red Blood Count 3.91 10^6/uL (4.06-5.63); Red Cell Distribution Width 15.6 % (12-17); White Blood Count 17.4 10^3/uL (3.6-10.2)
[2024-01-21 07:24] LABS: Albumin 2.7 g/dL (3.2-5.2); Albumin/Globulin Ratio 1.4 (1-3); Calcium 8.4 mg/dL (8.6-10.3); Creatinine, Serum 1.77 mg/dL (0.67-1.17); Globulin 1.9 g/dL (2-4); Magnesium 2.2 mg/dL (1.9-2.7); Potassium 4.2 mmol/L (3.5-5.0); Total Bilirubin 0.6 mg/dL (0.2-1.0); Total Protein 4.6 g/dL (6.4-8.9)
[2024-01-21] MEDS: D5W 1000 ml BAG 1,000 ML IV ONE (10:13)
[2024-01-21] MEDS: DESMOPRESSIN ACETATE IVPB ONE (10:31)
[2024-01-21] MEDS: NS 0.9% IVPB ONE (10:31)
[2024-01-21] MEDS: D5W 500 ml BAG 500 ML IV SCH (13:51)
[2024-01-21] MEDS: fentaNYL 100 mcg/2 ml 50 MCG/ML VIAL IV SLOW PU PRN (16:36)
[2024-01-21] MEDS: fentaNYL 100 mcg/2 ml 50 MCG/ML VIAL ONE (17:27)
[2024-01-21] MEDS: Vancomycin Trough Check NOTE FOLLOW UP ONE (17:28)
[2024-01-21] MEDS: Morphine 4 MG/ML VIAL (1 ml) IV PRN (18:45)
[2024-01-21] MEDS: Morphine 4 MG/ML VIAL (1 ml) ONE (20:00)
[2024-01-22] MEDS ORDERED: Vancomycin Random Level NOTE FOLLOW UP ONE (06:00)
== END 2024-01-21 19:16 | disposition expired | DRG 812 ==
LOC: ED 08:10 → EDHOLD 08:47 → ICU 14:25
PROVIDERS: ADMIT Student in an Organized Health Care Education/Training Program; ATTEND Internal Medicine Pulmonary Disease